=== PATIENT | male | born 1990 | race Caucasian/White ===

== ENCOUNTER 2020-04-15 22:23 | Observation (INO) | payer SELFPAY ==
--- NOTE | 2020-04-15 22:51 | EDM.PDOC ---
ED HPI GENERAL MEDICAL PROBLEM - General Chief Complaint: Headache Stated Complaint: SICK Time Seen by Provider: 04/15/20 22:49 Source of Information: Reports: Patient History Limitations: Reports: No Limitations - History of Present Illness INITIAL COMMENTS - FREE TEXT/NARRATIVE: 29 yo M presents with abdominal pain, headache, constitutional symptoms. Symptoms started about 3 weeks ago with fevers, generalized malaise, myalgias, chills, dizziness, cervical and inguinal lymph node swelling, neck pain, headache, light sensitivity, dry eyes. He also notes a constant gradual onset diffuse headache currently rated 5/10. He admits to shortness of breath, nausea, decreased appetite, urinary frequency, abdominal pain that has been progressively worsening. His abdominal pain is localized to the right lower quadrant today, rated 7/10, nonradiating, constant, now resolved, no alleviating or exacerbating factors. He denies cough, chest pain, vomiting, diarrhea, dysuria. He was seen in the clinic on 03/26 and was given IM antibiotics for leukocytosis. He finished p.o. antibiotics last Sunday and he does not recall the name of the antibiotic. He denies tick bite or mosquito bites. ROS: A 10-point review of systems, other than pertinent positives and negatives as stated per HPI, is otherwise negative Past medical history: No additional pertinent history Past Surgical history: No additional pertinent history Social history: No additional pertinent history Family history: No additional pertinent history PHYSICAL EXAM General: AOx4, GCS = 15, mild distress Skin: clammy HEENT: dry mucous membrane, cervical lymphadenopathy, trace erythema bilateral tonsils. Neck: supple, no meningismus, no Kernig or Brudzinski Cardiac: S1S2 tachycardia, no audible murmur Respiratory: CTAB, no crackles or rales, no wheezing Abdomen: Soft, nontender, no rebound or guarding, nondistended, no pulsatile mass. Back: nontender Musculoskeletal: NVI distally, no deformity Neuro: No focal deficits Head Pain Score (Numeric/FACES): 9 - Related Data Allergies Allergy/AdvReac Type Severity Reaction Status Date / Time No Known Allergies Allergy Verified 04/15/20 22:40 Home Meds: Home Meds . [No Known Home Meds] 04/15/20 [History] Past Medical History - Past Health History Medical/Surgical History: Denies Medical/Surgical History - Infectious Disease History Infectious Disease History: Reports: Chicken Pox Social & Family History - Tobacco Use Tobacco Use Status *Q: Never Tobacco User - Caffeine Use Caffeine Use: Reports: Coffee, Energy Drinks - Recreational Drug Use Recreational Drug Use: Yes Drug Use in Last 12 Months: Yes Recreational Drug Type: Reports: Marijuana/Hashish Recreational Drug Use Frequency: Weekly ED ROS GENERAL - Review of Systems Review Of Systems: See Below (see dictation) ED EXAM, GENERAL - Physical Exam Exam: See Below (see dictation) ED GENERAL MEDICAL PROCEDURES - Lumbar Puncture Indication: Fever, Headache Consent Obtained: Patient Position: Right Prep: CDC/MBT Guidelines, Sterile Drapes, Betadine Local Anesthesia - Lidocaine (Xylocaine): 1% Plain Local Anesthetic Volume: 5cc Vertebral Interspace: L4/L5 Spinal Needle with Stylet: 20ga, 3.5 Inch (Adult) Number of Attempts: 2 Fluid Appearance: Cloudy Tubes Obtained: 4 Total Fluid Amount: 4cc Complications: No Sterile Dressing: Adhesive Dressing #1 Interpretation EKG Interpretation Comments: Heart rate = 90 bpm, normal sinus rhythm, normal QRS interval, no STEMI. EKG and rhythm strip interpreted by me at 1135pm Course - Vital Signs Last Recorded V/S: Last Vital Signs Temp 97.9 F 04/16/20 01:19 Pulse 72 04/16/20 01:19 Resp 18 04/16/20 01:19 BP 102/42 L 04/16/20 01:19 Pulse Ox 97 04/16/20 01:19 - Orders/Labs/Meds Orders: Active Orders 24 hr Category Date Time Status Patient Status [ADT] Routine ADT 04/16/20 03:50 Ordered Cardiac Monitoring [RC] . DIRECTED Care 04/15/20 23:04 Active EKG Documentation Completion [RC] STAT Care 04/15/20 23:05 Active Flat in Bed [RC] ASDIRECTED Care 04/16/20 00:34 Active Procedure Tray at Bedside [RC] ASDIRECTED Care 04/16/20 00:34 Active Pulse Oximetry [RC] ASDIRECTED Care 04/15/20 23:04 Active Verify Patient Consent Obtain [RC] ASDIRECTED Care 04/16/20 00:34 Active CULTURE BLOOD [BC] Stat Lab 04/15/20 23:54 Received CULTURE BLOOD [BC] Stat Lab 04/15/20 23:59 Received CULTURE CSF + SMEAR [RM] Urgent Lab 04/16/20 01:45 Received GLUCOSE,CSF [BF] Urgent Lab 04/16/20 01:45 Received HSV 1/2 PCR [REF] Stat Lab 04/16/20 01:45 Received PROCALCITONIN [REF] Stat Lab 04/15/20 23:26 Received PROTEIN,CSF [BF] Urgent Lab 04/16/20 01:45 Received [place] VIRUS ANTIBODY, CSF Stat Lab 04/16/20 01:45 Received Acyclovir [Zovirax] 1,000 mg Med 04/16/20 03:11 Active Sodium Chloride 0.9% [Normal Saline] 250 ml IV ONETIME Acyclovir [Zovirax] 1,000 mg Med 04/16/20 02:15 Active Sodium Chloride 0.9% [Normal Saline] 250 ml IV Q8H Sodium Chloride 0.9% [Saline Flush] Med 04/15/20 23:04 Active 10 ml FLUSH ASDIRECTED PRN Sodium Chloride 0.9% [Saline Flush] Med 04/15/20 23:04 Active 2.5 ml FLUSH ASDIRECTED PRN Vancomycin Med 04/16/20 02:15 Active 1,462.83 mg IV Q12H Blood Culture x2 Reflex Set [OM.PC] Stat Oth 04/15/20 23:05 Ordered ED Lumbar Puncture Reflex [OM.PC] Click to Edit Oth 04/16/20 00:34 Ordered Saline Lock Insert [OM.PC] Stat Oth 04/15/20 23:04 Ordered Medication Orders Acyclovir 1,000 mg/ Sodium (Chloride) 270 mls @ 270 mls/hr IV Q8H [facility] Last Admin: 04/16/20 03:14 Dose: Not Given Documented by: GAIL Acyclovir 1,000 mg/ Sodium (Chloride) 270 mls @ 250 mls/hr IV ONETIME ONE Stop: 04/16/20 04:15 Last Admin: 04/16/20 03:12 Dose: 250 mls/hr Documented by: GAIL Sodium Chloride (Saline Flush) 10 ml FLUSH ASDIRECTED PRN PRN Reason: Keep Vein Open Last Admin: 04/15/20 23:28 Dose: 10 ml Documented by: IZAIAH Sodium Chloride (Saline Flush) 2.5 ml FLUSH ASDIRECTED PRN PRN Reason: Keep Vein Open Last Admin: 04/15/20 23:28 Dose: 2.5 ml Documented by: IZAIAH Vancomycin HCl (Vancomycin) 1,462.83 mg 15 mg/kg (1462.83 mg) IV Q12H [facility] Last Admin: 04/16/20 03:00 Dose: Not Given Documented by: GAIL Labs: Laboratory Tests 04/15/20 04/15/20 04/15/20 Range/Units 23:26 23:26 23:26 WBC 10.76 (4.0-11.0) K/uL RBC 3.99 L (4.50-5.90) M/uL Hgb 12.1 L (13.0-17.0) g/dL Hct 35.5 L (38.0-50.0) % MCV 89.0 (80.0-98.0) fL MCH 30.3 (27.0-32.0) pg MCHC 34.1 (31.0-37.0) g/dL RDW Std Deviation 38.9 (28.0-62.0) fl RDW Coeff of Aditya 12 (11.0-15.0) % Plt Count 243 (150-400) K/uL MPV 10.10 (7.40-12.00) fL Neut % (Auto) 71.8 (48.0-80.0) % Lymph % (Auto) 15.2 L (16.0-40.0) % Hanson % (Auto) 12.5 (0.0-15.0) % Eos % (Auto) 0.2 (0.0-7.0) % Baso % (Auto) 0.3 (0.0-1.5) % Neut # (Auto) 7.7 H (1.4-5.7) K/uL Lymph # (Auto) 1.6 (0.6-2.4) K/uL Hanson # (Auto) 1.3 H (0.0-0.8) K/uL Eos # (Auto) 0.0 (0.0-0.7) K/uL Baso # (Auto) 0.0 (0.0-0.1) K/uL Nucleated RBC % 0.0 /100WBC Nucleated RBCs # 0 K/uL ESR (0-14) mm/hr APTT (18.6-31.3) SEC D-Dimer, Quantitative (0.0-0.50) mg/L FEU Lactate 0.6 (0.20-2.00) mmol/L Sodium 133 L (136-148) mmol/L Potassium 3.7 (3.5-5.1) mmol/L Chloride 99 (98-107) mmol/L Carbon Dioxide 25.4 (21.0-32.0) mmol/L BUN 16 (7.0-18.0) mg/dL Creatinine 1.2 (0.8-1.3) mg/dL Est Cr Clr Drug Dosing 102.65 mL/min Estimated GFR (MDRD) > 60.0 ml/min Glucose 112 H (74-106) mg/dL Calcium 8.9 (8.5-10.1) mg/dL Phosphorus 2.7 (2.6-4.7) mg/dL Magnesium 2.0 (1.8-2.4) mg/dL Total Bilirubin 0.5 (0.2-1.0) mg/dL AST 33 (15-37) IU/L ALT 37 (14-63) IU/L Alkaline Phosphatase 65 (46-116) U/L Creatine Kinase 866 H (26-308) U/L CK-MB (CK-2) (0-3.6) ng/mL Troponin I 0.058 H* (0.000-0.056) ng/mL C-Reactive Protein 8.60 H (0.00-0.90) mg/dL B-Natriuretic Peptide (<100) PG/ML Total Protein 7.1 (6.4-8.2) g/dL Albumin 4.0 (3.4-5.0) g/dL Globulin 3.1 (2.6-4.0) g/dL Albumin/Globulin Ratio 1.3 (0.9-1.6) Lipase 112 (73-393) U/L Urine Color Urine Appearance Urine pH (5.0-8.0) Ur Specific Arbuckle (1.001-1.035) Urine Protein (NEGATIVE) mg/dL Urine Glucose (UA) (NEGATIVE) mg/dL Urine Ketones (NEGATIVE) mg/dL Urine Occult Blood (NEGATIVE) Urine Nitrite (NEGATIVE) Urine Bilirubin (NEGATIVE) Urine Urobilinogen (<2.0) EU/dL Ur Leukocyte Esterase (NEGATIVE) Urine RBC (0-2/HPF) Urine WBC (0-5/HPF) Ur Epithelial Cells (NONE-FEW) Urine Bacteria (NEGATIVE) Urine Mucus (NONE-MOD) CSF Appearance CSF Color CSF WBC (0-5) /uL CSF RBC (0-0) /uL CSF Mononuclear Cells % CSF Polymorphonuclear % Urine Opiates Screen (NEGATIVE) Ur Oxycodone Screen (NEGATIVE) Urine Methadone Screen (NEGATIVE) Ur Barbiturates Screen (NEGATIVE) Ur Phencyclidine Scrn (NEGATIVE) Ur Amphetamine Screen (NEGATIVE) U Methamphetamines Scrn (NEGATIVE) U Benzodiazepines Scrn (NEGATIVE) U Cocaine Metab Screen (NEGATIVE) U Marijuana (THC) Screen (NEGATIVE) Monoscreen (NEG) Influenza Type A RNA (NEGATIVE) Influenza Type B RNA (NEGATIVE) RSV Rapid (NEGATIVE) SARS-CoV-2 RNA (LARRY) (NEGATIVE) 04/15/20 04/15/20 04/15/20 Range/Units 23:26 23:26 23:26 WBC (4.0-11.0) K/uL RBC (4.50-5.90) M/uL Hgb (13.0-17.0) g/dL Hct (38.0-50.0) % MCV (80.0-98.0) fL MCH (27.0-32.0) pg MCHC (31.0-37.0) g/dL RDW Std Deviation (28.0-62.0) fl RDW Coeff of Aditya (11.0-15.0) % Plt Count (150-400) K/uL MPV (7.40-12.00) fL Neut % (Auto) (48.0-80.0) % Lymph % (Auto) (16.0-40.0) % Hanson % (Auto) (0.0-15.0) % Eos % (Auto) (0.0-7.0) % Baso % (Auto) (0.0-1.5) % Neut # (Auto) (1.4-5.7) K/uL Lymph # (Auto) (0.6-2.4) K/uL Hanson # (Auto) (0.0-0.8) K/uL Eos # (Auto) (0.0-0.7) K/uL Baso # (Auto) (0.0-0.1) K/uL Nucleated RBC % /100WBC Nucleated RBCs # K/uL ESR 14 (0-14) mm/hr APTT 26.0 (18.6-31.3) SEC D-Dimer, Quantitative 0.36 (0.0-0.50) mg/L FEU Lactate (0.20-2.00) mmol/L Sodium (136-148) mmol/L Potassium (3.5-5.1) mmol/L Chloride (98-107) mmol/L Carbon Dioxide (21.0-32.0) mmol/L BUN (7.0-18.0) mg/dL Creatinine (0.8-1.3) mg/dL Est Cr Clr Drug Dosing mL/min Estimated GFR (MDRD) ml/min Glucose (74-106) mg/dL Calcium (8.5-10.1) mg/dL Phosphorus (2.6-4.7) mg/dL Magnesium (1.8-2.4) mg/dL Total Bilirubin (0.2-1.0) mg/dL AST (15-37) IU/L ALT (14-63) IU/L Alkaline Phosphatase (46-116) U/L Creatine Kinase (26-308) U/L CK-MB (CK-2) (0-3.6) ng/mL Troponin I (0.000-0.056) ng/mL C-Reactive Protein (0.00-0.90) mg/dL B-Natriuretic Peptide (<100) PG/ML Total Protein (6.4-8.2) g/dL Albumin (3.4-5.0) g/dL Globulin (2.6-4.0) g/dL Albumin/Globulin Ratio (0.9-1.6) Lipase (73-393) U/L Urine Color Urine Appearance Urine pH (5.0-8.0) Ur Specific Arbuckle (1.001-1.035) Urine Protein (NEGATIVE) mg/dL Urine Glucose (UA) (NEGATIVE) mg/dL Urine Ketones (NEGATIVE) mg/dL Urine Occult Blood (NEGATIVE) Urine Nitrite (NEGATIVE) Urine Bilirubin (NEGATIVE) Urine Urobilinogen (<2.0) EU/dL Ur Leukocyte Esterase (NEGATIVE) Urine RBC (0-2/HPF) Urine WBC (0-5/HPF) Ur Epithelial Cells (NONE-FEW) Urine Bacteria (NEGATIVE) Urine Mucus (NONE-MOD) CSF Appearance CSF Color CSF WBC (0-5) /uL CSF RBC (0-0) /uL CSF Mononuclear Cells % CSF Polymorphonuclear % Urine Opiates Screen (NEGATIVE) Ur Oxycodone Screen (NEGATIVE) Urine Methadone Screen (NEGATIVE) Ur Barbiturates Screen (NEGATIVE) Ur Phencyclidine Scrn (NEGATIVE) Ur Amphetamine Screen (NEGATIVE) U Methamphetamines Scrn (NEGATIVE) U Benzodiazepines Scrn (NEGATIVE) U Cocaine Metab Screen (NEGATIVE) U Marijuana (THC) Screen (NEGATIVE) Monoscreen NEGATIVE (NEG) Influenza Type A RNA (NEGATIVE) Influenza Type B RNA (NEGATIVE) RSV Rapid (NEGATIVE) SARS-CoV-2 RNA (LARRY) (NEGATIVE) 04/15/20 04/16/20 04/16/20 Range/Units 23:26 00:30 00:30 WBC (4.0-11.0) K/uL RBC (4.50-5.90) M/uL Hgb (13.0-17.0) g/dL Hct (38.0-50.0) % MCV (80.0-98.0) fL MCH (27.0-32.0) pg MCHC (31.0-37.0) g/dL RDW Std Deviation (28.0-62.0) fl RDW Coeff of Aditya (11.0-15.0) % Plt Count (150-400) K/uL MPV (7.40-12.00) fL Neut % (Auto) (48.0-80.0) % Lymph % (Auto) (16.0-40.0) % Hanson % (Auto) (0.0-15.0) % Eos % (Auto) (0.0-7.0) % Baso % (Auto) (0.0-1.5) % Neut # (Auto) (1.4-5.7) K/uL Lymph # (Auto) (0.6-2.4) K/uL Hanson # (Auto) (0.0-0.8) K/uL Eos # (Auto) (0.0-0.7) K/uL Baso # (Auto) (0.0-0.1) K/uL Nucleated RBC % /100WBC Nucleated RBCs # K/uL ESR (0-14) mm/hr APTT (18.6-31.3) SEC D-Dimer, Quantitative (0.0-0.50) mg/L FEU Lactate (0.20-2.00) mmol/L Sodium (136-148) mmol/L Potassium (3.5-5.1) mmol/L Chloride (98-107) mmol/L Carbon Dioxide (21.0-32.0) mmol/L BUN (7.0-18.0) mg/dL Creatinine (0.8-1.3) mg/dL Est Cr Clr Drug Dosing mL/min Estimated GFR (MDRD) ml/min Glucose (74-106) mg/dL Calcium (8.5-10.1) mg/dL Phosphorus (2.6-4.7) mg/dL Magnesium (1.8-2.4) mg/dL Total Bilirubin (0.2-1.0) mg/dL AST (15-37) IU/L ALT (14-63) IU/L Alkaline Phosphatase (46-116) U/L Creatine Kinase (26-308) U/L CK-MB (CK-2) (0-3.6) ng/mL Troponin I (0.000-0.056) ng/mL C-Reactive Protein (0.00-0.90) mg/dL B-Natriuretic Peptide 14 (<100) PG/ML Total Protein (6.4-8.2) g/dL Albumin (3.4-5.0) g/dL Globulin (2.6-4.0) g/dL Albumin/Globulin Ratio (0.9-1.6) Lipase (73-393) U/L Urine Color YELLOW Urine Appearance CLEAR Urine pH 6.0 (5.0-8.0) Ur Specific Arbuckle 1.020 (1.001-1.035) Urine Protein NEGATIVE (NEGATIVE) mg/dL Urine Glucose (UA) NEGATIVE (NEGATIVE) mg/dL Urine Ketones NEGATIVE (NEGATIVE) mg/dL Urine Occult Blood TRACE-INTACT H (NEGATIVE) Urine Nitrite NEGATIVE (NEGATIVE) Urine Bilirubin NEGATIVE (NEGATIVE) Urine Urobilinogen 0.2 (<2.0) EU/dL Ur Leukocyte Esterase NEGATIVE (NEGATIVE) Urine RBC 0-2 (0-2/HPF) Urine WBC 0-1 (0-5/HPF) Ur Epithelial Cells OCCASIONAL (NONE-FEW) Urine Bacteria RARE (NEGATIVE) Urine Mucus LIGHT (NONE-MOD) CSF Appearance CSF Color CSF WBC (0-5) /uL CSF RBC (0-0) /uL CSF Mononuclear Cells % CSF Polymorphonuclear % Urine Opiates Screen NEGATIVE (NEGATIVE) Ur Oxycodone Screen NEGATIVE (NEGATIVE) Urine Methadone Screen NEGATIVE (NEGATIVE) Ur Barbiturates Screen NEGATIVE (NEGATIVE) Ur Phencyclidine Scrn NEGATIVE (NEGATIVE) Ur Amphetamine Screen NEGATIVE (NEGATIVE) U Methamphetamines Scrn NEGATIVE (NEGATIVE) U Benzodiazepines Scrn NEGATIVE (NEGATIVE) U Cocaine Metab Screen NEGATIVE (NEGATIVE) U Marijuana (THC) Screen POSITIVE (NEGATIVE) Monoscreen (NEG) Influenza Type A RNA (NEGATIVE) Influenza Type B RNA (NEGATIVE) RSV Rapid (NEGATIVE) SARS-CoV-2 RNA (LARRY) (NEGATIVE) 04/16/20 04/16/20 04/16/20 Range/Units 01:00 01:45 02:08 WBC (4.0-11.0) K/uL RBC (4.50-5.90) M/uL Hgb (13.0-17.0) g/dL Hct (38.0-50.0) % MCV (80.0-98.0) fL MCH (27.0-32.0) pg MCHC (31.0-37.0) g/dL RDW Std Deviation (28.0-62.0) fl RDW Coeff of Aditya (11.0-15.0) % Plt Count (150-400) K/uL MPV (7.40-12.00) fL Neut % (Auto) (48.0-80.0) % Lymph % (Auto) (16.0-40.0) % Hanson % (Auto) (0.0-15.0) % Eos % (Auto) (0.0-7.0) % Baso % (Auto) (0.0-1.5) % Neut # (Auto) (1.4-5.7) K/uL Lymph # (Auto) (0.6-2.4) K/uL Hanson # (Auto) (0.0-0.8) K/uL Eos # (Auto) (0.0-0.7) K/uL Baso # (Auto) (0.0-0.1) K/uL Nucleated RBC % /100WBC Nucleated RBCs # K/uL ESR (0-14) mm/hr APTT (18.6-31.3) SEC D-Dimer, Quantitative (0.0-0.50) mg/L FEU Lactate (0.20-2.00) mmol/L Sodium (136-148) mmol/L Potassium (3.5-5.1) mmol/L Chloride (98-107) mmol/L Carbon Dioxide (21.0-32.0) mmol/L BUN (7.0-18.0) mg/dL Creatinine (0.8-1.3) mg/dL Est Cr Clr Drug Dosing mL/min Estimated GFR (MDRD) ml/min Glucose (74-106) mg/dL Calcium (8.5-10.1) mg/dL Phosphorus (2.6-4.7) mg/dL Magnesium (1.8-2.4) mg/dL Total Bilirubin (0.2-1.0) mg/dL AST (15-37) IU/L ALT (14-63) IU/L Alkaline Phosphatase (46-116) U/L Creatine Kinase (26-308) U/L CK-MB (CK-2) 0.7 (0-3.6) ng/mL Troponin I < 0.050 (0.000-0.056) ng/mL C-Reactive Protein (0.00-0.90) mg/dL B-Natriuretic Peptide (<100) PG/ML Total Protein (6.4-8.2) g/dL Albumin (3.4-5.0) g/dL Globulin (2.6-4.0) g/dL Albumin/Globulin Ratio (0.9-1.6) Lipase (73-393) U/L Urine Color Urine Appearance Urine pH (5.0-8.0) Ur Specific Arbuckle (1.001-1.035) Urine Protein (NEGATIVE) mg/dL Urine Glucose (UA) (NEGATIVE) mg/dL Urine Ketones (NEGATIVE) mg/dL Urine Occult Blood (NEGATIVE) Urine Nitrite (NEGATIVE) Urine Bilirubin (NEGATIVE) Urine Urobilinogen (<2.0) EU/dL Ur Leukocyte Esterase (NEGATIVE) Urine RBC (0-2/HPF) Urine WBC (0-5/HPF) Ur Epithelial Cells (NONE-FEW) Urine Bacteria (NEGATIVE) Urine Mucus (NONE-MOD) CSF Appearance CLEAR CSF Color COLORLESS CSF WBC 3 (0-5) /uL CSF RBC 259 H (0-0) /uL CSF Mononuclear Cells 67.0 % CSF Polymorphonuclear 33.0 % Urine Opiates Screen (NEGATIVE) Ur Oxycodone Screen (NEGATIVE) Urine Methadone Screen (NEGATIVE) Ur Barbiturates Screen (NEGATIVE) Ur Phencyclidine Scrn (NEGATIVE) Ur Amphetamine Screen (NEGATIVE) U Methamphetamines Scrn (NEGATIVE) U Benzodiazepines Scrn (NEGATIVE) U Cocaine Metab Screen (NEGATIVE) U Marijuana (THC) Screen (NEGATIVE) Monoscreen (NEG) Influenza Type A RNA NEGATIVE (NEGATIVE) Influenza Type B RNA NEGATIVE (NEGATIVE) RSV Rapid NEGATIVE (NEGATIVE) SARS-CoV-2 RNA (LARRY) NEGATIVE (NEGATIVE) Meds: Medications Generic Name Dose Route Start Last Admin Trade Name Freq PRN Reason Stop Dose Admin Acyclovir 1,000 mg/ Sodium 270 mls @ 270 mls/hr 04/16/20 02:15 04/16/20 03:14 Chloride IV Not Given Q8H DEISY Acyclovir 1,000 mg/ Sodium 270 mls @ 250 mls/hr 04/16/20 03:11 04/16/20 03:12 Chloride IV 04/16/20 04:15 250 mls/hr ONETIME ONE Administration Sodium Chloride 10 ml 04/15/20 23:04 04/15/20 23:28 Saline Flush FLUSH 10 ml ASDIRECTED PRN Administration Keep Vein Open Sodium Chloride 2.5 ml 04/15/20 23:04 04/15/20 23:28 Saline Flush FLUSH 2.5 ml ASDIRECTED PRN Administration Keep Vein Open Vancomycin HCl 1,462.83 mg 04/16/20 02:15 04/16/20 03:00 Vancomycin 15 mg/kg (1462.83 mg) Not Given IV Q12H DEISY Discontinued Medications Generic Name Dose Route Start Last Admin Trade Name Erik PRN Reason Stop Dose Admin Acetaminophen 1,000 mg 04/15/20 23:15 04/15/20 23:28 Tylenol Extra Strength PO 04/15/20 23:16 1,000 mg ONETIME ONE Administration Ceftriaxone Sodium 2 gm 04/16/20 02:07 04/16/20 02:18 Rocephin IVPUSH 04/16/20 02:08 Not Given ONETIME ONE Dexamethasone 10 mg 04/16/20 02:07 04/16/20 02:16 Decadron IVPUSH 04/16/20 02:08 10 mg ONETIME ONE Administration Diphenhydramine HCl 50 mg 04/15/20 23:54 04/16/20 00:26 Benadryl IVPUSH 04/15/20 23:55 Not Given ONETIME ONE Lactated Ringer's 1,000 mls @ 999 mls/hr 04/15/20 23:04 04/15/20 23:28 Ringers, Lactated IV 04/16/20 00:04 999 mls/hr .BOLUS ONE Administration Lactated Ringer's 1,000 mls @ 999 mls/hr 04/16/20 01:07 04/16/20 01:12 Ringers, Lactated IV 04/16/20 02:07 999 mls/hr .BOLUS ONE Administration Ceftriaxone Sodium/Dextrose 2 50 mls @ 100 mls/hr 04/16/20 02:18 04/16/20 02:30 gm/ Premix IV 04/16/20 02:47 100 mls/hr ONETIME ONE Administration Vancomycin HCl 1.5 gm/ Premix 300 mls @ 300 mls/hr 04/16/20 02:38 IV 04/16/20 02:39 ONETIME ONE Iopamidol 100 ml 04/16/20 01:08 04/16/20 01:48 Isovue Multipack-370 (76%) IVPUSH 04/16/20 01:09 100 ml ONETIME STA Administration Ketorolac Tromethamine 30 mg 04/15/20 23:54 04/16/20 00:23 Toradol IVPUSH 04/15/20 23:55 30 mg ONETIME ONE Administration Lidocaine HCl Confirm 04/16/20 01:52 04/16/20 01:57 Xylocaine-Mpf 1% Administered 04/16/20 01:53 Not Given Dose 5 ml .ROUTE .STK-MED ONE Lidocaine HCl 5 ml 04/16/20 01:56 04/16/20 02:03 Xylocaine-Mpf 1% INJECT 04/16/20 01:57 5 ml ONETIME ONE Administration Metoclopramide HCl 10 mg 04/15/20 23:54 04/16/20 00:23 Reglan IVPUSH 04/15/20 23:55 10 mg ONETIME ONE Administration - Re-Assessments/Exams Free Text/Narrative Re-Assessment/Exam: 04/16/20 02:12 Ordered 10 mg IV Decadron prior to IV Rocephin 2 g, vancomycin 15mg/kg, acyclovir 10mg/kg. 04/16/20 03:[address] Post, who agrees to admit patient. The hospitalist's documentation supersedes all other documentation on this patient with regard to any conflicts or discrepancies from this point forward. Any emergency conditions have been treated to the ability of the ED prior to admission. MEDICAL DECISION MAKING: I reviewed the patients past medical records, lab and radiographic findings. I discussed the case with the patient. My differential diagnosis included: Encephalitis, meningitis, viral syndrome, appendicitis. CT demonstrates findings worrisome of early appendicitis. His symptoms are consistent with encephalitis versus meningitis. Lumbar puncture did not demonstrate elevated WBC. HSV 1/2 was sent and pending. Departure - Departure Time of Disposition: 03:52 Disposition: Refer to Observation Condition: Good Clinical Impression: Aseptic meningitis, Elevated troponin, Strep pharyngitis, Viral syndrome - Discharge Information *PRESCRIPTION DRUG MONITORING PROGRAM REVIEWED*: Not Applicable *COPY OF PRESCRIPTION DRUG MONITORING REPORT IN PATIENT EMI: Not Applicable Referrals: PCP,None [Primary Care Provider] - Forms: ED Department Discharge Critical Care Note - Critical Care Note Total Time (mins): 78 Comments: CRITCAL CARE: The high probability of sudden, clinically significant deterioration in the patient's condition required the highest level of my preparedness to intervene urgently. The services I provided to this patient were to treat and/or prevent clinically significant deterioration. Services included the following: chart data review, reviewing nursing notes and/or old charts, documentation time, transformation consultant collaboration regarding findings and treatment options, medication orders and management, direct patient care, vital sign assessments and ordering, i nterpreting and reviewing diagnostic studies/lab tests. Aggregate critical care time includes only time during which I was engaged in work directly related to the patient's care, as described above, whether at the bedside or elsewhere in the Emergency Department. It did not include time spent performing other reported procedures or the services of residents, students, nurses or physician assistants. Frequent interventions and/or frequent repeat evaluations were required as well as counseling and coordination of care regarding prognosis, treatments, and discussions with patient, staff and con sultants. Critical Care (excluding other procedures): 78 minutes Sepsis Event Note (ED) - Evaluation Sepsis Screening Result: Possible Sepsis Risk - Focused Exam Vital Signs: Vital Signs Temp Temp Temp Pulse Resp BP Pulse Ox 04/16/20 01:19 97.9 F 72 18 102/42 L 97 04/16/20 00:29 97.7 F 88 18 120/39 L 97 04/15/20 23:28 100.7 F H 04/15/20 22:40 101 F H 100 16 132/63 95 - My Orders Last 24 Hours: My Active Orders 04/15/20 23:04 Cardiac Monitoring [RC] . DIRECTED Pulse Oximetry [RC] ASDIRECTED Sodium Chloride 0.9% [Saline Flush] 10 ml FLUSH ASDIRECTED PRN Sodium Chloride 0.9% [Saline Flush] 2.5 ml FLUSH ASDIRECTED PRN Saline Lock Insert [OM.PC] Stat 04/15/20 23:05 EKG Documentation Completion [RC] STAT Blood Culture x2 Reflex Set [OM.PC] Stat 04/15/20 23:26 PROCALCITONIN [REF] Stat 04/15/20 23:54 CULTURE BLOOD [BC] Stat 04/15/20 23:59 CULTURE BLOOD [BC] Stat 04/16/20 00:34 Flat in Bed [RC] ASDIRECTED Procedure Tray at Bedside [RC] ASDIRECTED Verify Patient Consent Obtain [RC] ASDIRECTED ED Lumbar Puncture Reflex [OM.PC] Click to Edit 04/16/20 01:45 CULTURE CSF + SMEAR [RM] Urgent GLUCOSE,CSF [BF] Urgent HSV 1/2 PCR [REF] Stat PROTEIN,CSF [BF] Urgent WEST NILE VIRUS ANTIBODY, CSF Stat 04/16/20 02:15 Acyclovir [Zovirax] 1,000 mg Sodium Chloride 0.9% [Normal Saline] 250 ml IV Q8H Vancomycin 1,462.83 mg IV Q12H 04/16/20 03:11 Acyclovir [Zovirax] 1,000 mg Sodium Chloride 0.9% [Normal Saline] 250 ml IV ONETIME 04/16/20 03:50 Patient Status [ADT] Routine - Assessment/Plan Last 24 Hours: My Active Orders 04/15/20 23:04 Cardiac Monitoring [RC] . DIRECTED Pulse Oximetry [RC] ASDIRECTED Sodium Chloride 0.9% [Saline Flush] 10 ml FLUSH ASDIRECTED PRN Sodium Chloride 0.9% [Saline Flush] 2.5 ml FLUSH ASDIRECTED PRN Saline Lock Insert [OM.PC] Stat 04/15/20 23:05 EKG Documentation Completion [RC] STAT Blood Culture x2 Reflex Set [OM.PC] Stat 04/15/20 23:26 PROCALCITONIN [REF] Stat 04/15/20 23:54 CULTURE BLOOD [BC] Stat 04/15/20 23:59 CULTURE BLOOD [BC] Stat 04/16/20 00:34 Flat in Bed [RC] ASDIRECTED Procedure Tray at Bedside [RC] ASDIRECTED Verify Patient Consent Obtain [RC] ASDIRECTED ED Lumbar Puncture Reflex [OM.PC] Click to Edit 04/16/20 01:45 CULTURE CSF + SMEAR [RM] Urgent GLUCOSE,CSF [BF] Urgent HSV 1/2 PCR [REF] Stat PROTEIN,CSF [BF] Urgent WEST NILE VIRUS ANTIBODY, CSF Stat 04/16/20 02:15 Acyclovir [Zovirax] 1,000 mg Sodium Chloride 0.9% [Normal Saline] 250 ml IV Q8H Vancomycin 1,462.83 mg IV Q12H 04/16/20 03:11 Acyclovir [Zovirax] 1,000 mg Sodium Chloride 0.9% [Normal Saline] 250 ml IV ONETIME 04/16/20 03:50 Patient Status [ADT] Routine
[2020-04-15] MEDS ORDERED: Acetaminophen 325 MG/10.15 ML ML PO ONE (23:04)
[2020-04-15] MEDS ORDERED: Sodium Chloride 0.9% 10 ML Syringe FLUSH PRN (23:04)
[2020-04-15] MEDS ORDERED: Sodium Chloride 0.9% 2.5 ML Syringe FLUSH PRN (23:04)
[2020-04-15] MEDS ORDERED: Lactated Ringers 1,000 ML IV ONE (23:04)
[2020-04-15] MEDS ORDERED: Acetaminophen 500 MG Tab PO ONE (23:15)
[2020-04-15] MEDS ORDERED: Metoclopramide 10 MG/2 ML SDV IVPUSH ONE (23:54)
[2020-04-15] MEDS ORDERED: Ketorolac 30 MG/ML SDV IVPUSH ONE (23:54)
[2020-04-15] MEDS ORDERED: diphenhydrAMINE 50 MG/ML SDV IVPUSH ONE (23:54)
[2020-04-16 00:09] LABS: BLOOD UREA NITROGEN,BUN 16 mg/dL (7.0-18.0); CARBON DIOXIDE,CO2 25.4 mmol/L (21.0-32.0); CHLORIDE,CL 99 mmol/L (98-107); GLUCOSE RANDOM 112 mg/dL (74-106); LIPASE 112 U/L (73-393); POTASSIUM,K 3.7 mmol/L (3.5-5.1); SODIUM,NA 133 mmol/L (136-148)
[2020-04-16] MEDS ORDERED: Lactated Ringers 1,000 ML IV ONE (01:07)
[2020-04-16] MEDS ORDERED: Iopamidol 755 MG/ML 500 ML Multipack Bottle IVPUSH STA (01:08)
--- NOTE | 2020-04-16 01:17 | CT ---
INDICATION: Headache TECHNIQUE: CT Head without i.v. contrast. COMPARISON: None FINDINGS: CSF space: The ventricles are normal for age. Brain: No evidence of mass, acute infarction or hemorrhage is seen. No mass-effect or midline shift is seen. The brain parenchyma is otherwise normal in appearance with preservation of the pablo-white matter junction. Calvarium: The visualized paranasal sinuses are well aerated. The mastoid air cells are clear. The visualized orbits are grossly unremarkable. The calvarium is unremarkable in appearance with no fractures identified. IMPRESSION: 1. No evidence of acute infarction, intracranial hemorrhage, or mass-effect seen. Please note that all CT scans at this facility use dose modulation, iterative reconstruction, and/or weight-based dosing when appropriate to reduce radiation dose to as low as reasonably achievable. Dictated by: Carmelo Lowe MD @ 04/16/2020 01:15:36 (Electronically Signed)
--- NOTE | 2020-04-16 01:17 | CR ---
INDICATION: Shortness of breath TECHNIQUE: Chest radiograph 1 view COMPARISON: 08/11/2019 FINDINGS: Mediastinum: The mediastinum is normal in appearance. The heart silhouette is normal in size and morphology. Lung: Both lungs are unremarkable in appearance. No sign of pleural effusion seen. No pneumothorax is identified. Bone and Soft tissue: Unremarkable for age. IMPRESSION: 1. No acute cardiopulmonary disease is seen. Dictated by: Carmelo Lowe MD @ 04/16/2020 01:16:22 (Electronically Signed)
--- NOTE | 2020-04-16 01:21 | CT ---
INDICATION: Abdominal pain. Anemia TECHNIQUE: CT Abdomen and pelvis with i.v. contrast. Coronal and sagittal reformats were obtained. CONTRAST: 100 mL Isovue 370 COMPARISON: None FINDINGS: Lower chest: Unremarkable. Liver: Unremarkable. Spleen: Unremarkable. Pancreas: Unremarkable. Gallbladder: Unremarkable. Kidney: Unremarkable. No kidney or ureteral stones or obstruction seen. Adrenal: Unremarkable. Bowel: Moderate amount of stool is present throughout the colon which may be due to chronic constipation. The appendix is at the upper limits of normal in size, measuring 7-8 mm in diameter without wall thickening or surrounding inflammatory changes. Vascular: Unremarkable. Lymph: Unremarkable. Peritoneum: Unremarkable. No pneumoperitoneum is seen. No significant ascites is noted. Pelvis: Unremarkable. Soft tissue: Unremarkable. Bone: Unremarkable for age. IMPRESSION: 1. The appendix is at the upper limits of normal in size, measuring 7-8 mm in diameter without wall thickening or surrounding inflammatory changes. This is indeterminate by imaging and clinical followup is recommended. Dictated by Carmelo Lowe MD @ 04/16/2020 1:18:50 AM Please note that all CT scans at this facility use dose modulation, iterative reconstruction, and/or weight-based dosing when appropriate to reduce radiation dose to as low as reasonably achievable. Dictated by: Carmelo Lowe MD @ 04/16/2020 01:18:54 (Electronically Signed)
[2020-04-16 01:54] LABS: CORONAVIRUS COVID-19 NAA NEGATIVE (NEGATIVE); INFLUENZA A NAA NEGATIVE (NEGATIVE); INFLUENZA B NAA NEGATIVE (NEGATIVE); RESPIRATORY SYNCYTIAL VIR NAA NEGATIVE (NEGATIVE)
[2020-04-16] MEDS ORDERED: Dexamethasone 10 MG/ML SDV IVPUSH ONE (02:07)
[2020-04-16] MEDS ORDERED: cefTRIAXone 1 GM Vial IVPUSH ONE (02:07)
[2020-04-16] MEDS ORDERED: Vancomycin 500 MG SDV IV SCH (02:15)
[2020-04-16] MEDS ORDERED: cefTRIAXone 2 GM in Premix Bag 1 BAG IV ONE (02:18)
[2020-04-16] MEDS ORDERED: Acetaminophen 325 MG Tab PO PRN (05:37)
[2020-04-16] MEDS ORDERED: Sodium Chloride 0.9% 1,000 ML IV SCH (05:45)
[2020-04-16 06:39] LABS: BLOOD UREA NITROGEN,BUN 13 mg/dL (7.0-18.0); CARBON DIOXIDE,CO2 26.1 mmol/L (21.0-32.0); CHLORIDE,CL 104 mmol/L (98-107); GLUCOSE RANDOM 135 mg/dL (74-106); SODIUM,NA 139 mmol/L (136-148)
--- NOTE | 2020-04-16 07:44 | PCM.HP.2 ---
H&P History of Present Illness - General Date of Service: 04/16/20 Admit Problem/Dx: Admission Diagnosis/Problem Admission Diagnosis/Problem Elevated troponin I level - History of Present Illness Initial Comments - Free Text/Narative: 29 yo admitted for work-up for suspected encephalitis versus meningitis, positi ve strep pharyngitis. Patient states 3 week history of fevers, generalized malaise, myalgias, chills, dizziness, cervical and inguinal lymph node swelling, neck pain, headache, light sensitivity, dry eyes. Patient states that he was treated with doxycycline for left testicle swelling and inguinal lymph node tenderness prior to his current symptoms. Patient presented to the ED with shortness of breath, nausea, decreased appetite, headache, abdominal pain which was documented being localized to the right lower quadrant today, rated 7/10, nonradiating, constant. On admission patient states that his headache, sensitivity to light, abdominal pain, chills, dizziness have resolved. Patient states slight sore throat, swelling of cervical lymph nodes. Patient states abdominal pain is chronic and has had it on and off for 3 to 4 years. Patient states that he is seen providers for his pain but was told that it was most appendicitis or chronic constipation. In the ED patient was started on acyclovir, vancomycin, ceftriaxone, dexamethasone 10 mg IV. Initial troponin was slightly elevated at 0.058, repeat troponin less than 0.05. Lumbar puncture completed, CSF Gram stain was negative. CSF appearance clear, colorless, CSF WBC = 3. Negative for mono, influenza type A, type B, RSV. Covid negative. Blood blood culture pending, HSV 1 and 2 PCR, West Nile virus, CSF glucose, CSF protein orders are pending. Head Pain Score (Numeric/FACES): 9 - Related Data Allergies/Adverse Reactions: Allergies Allergy/AdvReac Type Severity Reaction Status Date / Time No Known Allergies Allergy Verified 04/15/20 22:40 Home Medications: Home Meds . [No Known Home Meds] 04/15/20 [History] Past Medical History - Past Health History Medical/Surgical History: Denies Medical/Surgical History - Infectious Disease History Infectious Disease History: Reports: Chicken Pox Social & Family History - Tobacco Use Tobacco Use Status *Q: Never Tobacco User - Caffeine Use Caffeine Use: Reports: Coffee, Energy Drinks - Recreational Drug Use Recreational Drug Use: Yes Drug Use in Last 12 Months: Yes Recreational Drug Type: Reports: Marijuana/Hashish Recreational Drug Use Frequency: Weekly H&P Review of Systems - Review of Systems: Review Of Systems: See Below General: Denies: Fever, Chills HEENT: Reports: Headaches, Other (Patient states sensation of feeling "out of it") Pulmonary: Denies: Shortness of Breath, Wheezing, Cough Cardiovascular: Denies: Chest Pain, Dyspnea on Exertion Psychiatric: Denies: Confusion, Anxiety Neurological: Reports: Headache. Denies: Confusion, Dizziness, Trouble Speaking, Difficulty Walking Exam - Exam Exam: See Below - Vital Signs Vital Signs: Last Vital Signs Temp 98.9 F 04/16/20 05:33 Pulse 72 04/16/20 05:33 Resp 16 04/16/20 05:33 BP 112/57 L 04/16/20 05:33 Pulse Ox 98 04/16/20 05:33 Weight: 214 lb 11.2 oz - Exam General: Alert, Oriented Lungs: Clear to Auscultation, Normal Respiratory Effort Cardiovascular: Regular Rate, Regular Rhythm GI/Abdominal Exam: Normal Bowel Sounds, Soft, Non-Tender Back Exam: No: CVA Tenderness (L), CVA Tenderness (R) Extremities: No: No Pedal Edema Neuro Extensive - Mental Status: Alert, Oriented x3 Psychiatric: Alert - Patient Data Lab Results Last 24 hrs: Laboratory Results - last 24 hr 04/15/20 04/15/20 04/15/20 Range/Units 23:26 23:26 23:26 WBC 10.76 (4.0-11.0) K/uL RBC 3.99 L (4.50-5.90) M/uL Hgb 12.1 L (13.0-17.0) g/dL Hct 35.5 L (38.0-50.0) % MCV 89.0 (80.0-98.0) fL MCH 30.3 (27.0-32.0) pg MCHC 34.1 (31.0-37.0) g/dL RDW Std Deviation 38.9 (28.0-62.0) fl RDW Coeff of Aditya 12 (11.0-15.0) % Plt Count 243 (150-400) K/uL MPV 10.10 (7.40-12.00) fL Neut % (Auto) 71.8 (48.0-80.0) % Lymph % (Auto) 15.2 L (16.0-40.0) % Ro[place] % (Auto) 12.5 (0.0-15.0) % Eos % (Auto) 0.2 (0.0-7.0) % Baso % (Auto) 0.3 (0.0-1.5) % Neut # (Auto) 7.7 H (1.4-5.7) K/uL Lymph # (Auto) 1.6 (0.6-2.4) K/uL [place] # (Auto) 1.3 H (0.0-0.8) K/uL Eos # (Auto) 0.0 (0.0-0.7) K/uL Baso # (Auto) 0.0 (0.0-0.1) K/uL Nucleated RBC % 0.0 /100WBC Nucleated RBCs # 0 K/uL ESR (0-14) mm/hr APTT (18.6-31.3) SEC D-Dimer, Quantitative (0.0-0.50) mg/L FEU Lactate 0.6 (0.20-2.00) mmol/L Sodium 133 L (136-148) mmol/L Potassium 3.7 (3.5-5.1) mmol/L Chloride 99 (98-107) mmol/L Carbon Dioxide 25.4 (21.0-32.0) mmol/L BUN 16 (7.0-18.0) mg/dL Creatinine 1.2 (0.8-1.3) mg/dL Est Cr Clr Drug Dosing 102.65 mL/min Estimated GFR (MDRD) > 60.0 ml/min Glucose 112 H (74-106) mg/dL Calcium 8.9 (8.5-10.1) mg/dL Phosphorus 2.7 (2.6-4.7) mg/dL Magnesium 2.0 (1.8-2.4) mg/dL Total Bilirubin 0.5 (0.2-1.0) mg/dL AST 33 (15-37) IU/L ALT 37 (14-63) IU/L Alkaline Phosphatase 65 (46-116) U/L Creatine Kinase 866 H (26-308) U/L CK-MB (CK-2) (0-3.6) ng/mL Troponin I 0.058 H* (0.000-0.056) ng/mL C-Reactive Protein 8.60 H (0.00-0.90) mg/dL B-Natriuretic Peptide (<100) PG/ML Total Protein 7.1 (6.4-8.2) g/dL Albumin 4.0 (3.4-5.0) g/dL Globulin 3.1 (2.6-4.0) g/dL Albumin/Globulin Ratio 1.3 (0.9-1.6) Lipase 112 (73-393) U/L Urine Color Urine Appearance Urine pH (5.0-8.0) Ur Specific [place] (1.001-1.035) Urine Protein (NEGATIVE) mg/dL Urine Glucose (UA) (NEGATIVE) mg/dL Urine Ketones (NEGATIVE) mg/dL Urine Occult Blood (NEGATIVE) Urine Nitrite (NEGATIVE) Urine Bilirubin (NEGATIVE) Urine Urobilinogen (<2.0) EU/dL Ur Leukocyte Esterase (NEGATIVE) Urine RBC (0-2/HPF) Urine WBC (0-5/HPF) Ur Epithelial Cells (NONE-FEW) Urine Bacteria (NEGATIVE) Urine Mucus (NONE-MOD) CSF Appearance CSF Color CSF WBC (0-5) /uL CSF RBC (0-0) /uL CSF Mononuclear Cells % CSF Polymorphonuclear % Urine Opiates Screen (NEGATIVE) Ur Oxycodone Screen (NEGATIVE) Urine Methadone Screen (NEGATIVE) Ur Barbiturates Screen (NEGATIVE) Ur Phencyclidine Scrn (NEGATIVE) Ur Amphetamine Screen (NEGATIVE) U Methamphetamines Scrn (NEGATIVE) U Benzodiazepines Scrn (NEGATIVE) U Cocaine Metab Screen (NEGATIVE) U Marijuana (THC) Screen (NEGATIVE) Monoscreen (NEG) Influenza Type A RNA (NEGATIVE) Influenza Type B RNA (NEGATIVE) RSV Rapid (NEGATIVE) SARS-CoV-2 RNA (LARRY) (NEGATIVE) 04/15/20 04/15/20 04/15/20 Range/Units 23:26 23:26 23:26 WBC (4.0-11.0) K/uL RBC (4.50-5.90) M/uL Hgb (13.0-17.0) g/dL Hct (38.0-50.0) % MCV (80.0-98.0) fL MCH (27.0-32.0) pg MCHC (31.0-37.0) g/dL RDW Std Deviation (28.0-62.0) fl RDW Coeff of Aditya (11.0-15.0) % Plt Count (150-400) K/uL MPV (7.40-12.00) fL Neut % (Auto) (48.0-80.0) % Lymph % (Auto) (16.0-40.0) % Ro[place] % (Auto) (0.0-15.0) % Eos % (Auto) (0.0-7.0) % Baso % (Auto) (0.0-1.5) % Neut # (Auto) (1.4-5.7) K/uL Lymph # (Auto) (0.6-2.4) K/uL [place] # (Auto) (0.0-0.8) K/uL Eos # (Auto) (0.0-0.7) K/uL Baso # (Auto) (0.0-0.1) K/uL Nucleated RBC % /100WBC Nucleated RBCs # K/uL ESR 14 (0-14) mm/hr APTT 26.0 (18.6-31.3) SEC D-Dimer, Quantitative 0.36 (0.0-0.50) mg/L FEU Lactate (0.20-2.00) mmol/L Sodium (136-148) mmol/L Potassium (3.5-5.1) mmol/L Chloride (98-107) mmol/L Carbon Dioxide (21.0-32.0) mmol/L BUN (7.0-18.0) mg/dL Creatinine (0.8-1.3) mg/dL Est Cr Clr Drug Dosing mL/min Estimated GFR (MDRD) ml/min Glucose (74-106) mg/dL Calcium (8.5-10.1) mg/dL Phosphorus (2.6-4.7) mg/dL Magnesium (1.8-2.4) mg/dL Total Bilirubin (0.2-1.0) mg/dL AST (15-37) IU/L ALT (14-63) IU/L Alkaline Phosphatase (46-116) U/L Creatine Kinase (26-308) U/L CK-MB (CK-2) (0-3.6) ng/mL Troponin I (0.000-0.056) ng/mL C-Reactive Protein (0.00-0.90) mg/dL B-Natriuretic Peptide (<100) PG/ML Total Protein (6.4-8.2) g/dL Albumin (3.4-5.0) g/dL Globulin (2.6-4.0) g/dL Albumin/Globulin Ratio (0.9-1.6) Lipase (73-393) U/L Urine Color Urine Appearance Urine pH (5.0-8.0) Ur Specific [place] (1.001-1.035) Urine Protein (NEGATIVE) mg/dL Urine Glucose (UA) (NEGATIVE) mg/dL Urine Ketones (NEGATIVE) mg/dL Urine Occult Blood (NEGATIVE) Urine Nitrite (NEGATIVE) Urine Bilirubin (NEGATIVE) Urine Urobilinogen (<2.0) EU/dL Ur Leukocyte Esterase (NEGATIVE) Urine RBC (0-2/HPF) Urine WBC (0-5/HPF) Ur Epithelial Cells (NONE-FEW) Urine Bacteria (NEGATIVE) Urine Mucus (NONE-MOD) CSF Appearance CSF Color CSF WBC (0-5) /uL CSF RBC (0-0) /uL CSF Mononuclear Cells % CSF Polymorphonuclear % Urine Opiates Screen (NEGATIVE) Ur Oxycodone Screen (NEGATIVE) Urine Methadone Screen (NEGATIVE) Ur Barbiturates Screen (NEGATIVE) Ur Phencyclidine Scrn (NEGATIVE) Ur Amphetamine Screen (NEGATIVE) U Methamphetamines Scrn (NEGATIVE) U Benzodiazepines Scrn (NEGATIVE) U Cocaine Metab Screen (NEGATIVE) U Marijuana (THC) Screen (NEGATIVE) Monoscreen NEGATIVE (NEG) Influenza Type A RNA (NEGATIVE) Influenza Type B RNA (NEGATIVE) RSV Rapid (NEGATIVE) SARS-CoV-2 RNA (LARRY) (NEGATIVE) 04/15/20 04/16/20 04/16/20 Range/Units 23:26 00:30 00:30 WBC (4.0-11.0) K/uL RBC (4.50-5.90) M/uL Hgb (13.0-17.0) g/dL Hct (38.0-50.0) % MCV (80.0-98.0) fL MCH (27.0-32.0) pg MCHC (31.0-37.0) g/dL RDW Std Deviation (28.0-62.0) fl RDW Coeff of Aditya (11.0-15.0) % Plt Count (150-400) K/uL MPV (7.40-12.00) fL Neut % (Auto) (48.0-80.0) % Lymph % (Auto) (16.0-40.0) % [place] % (Auto) (0.0-15.0) % Eos % (Auto) (0.0-7.0) % Baso % (Auto) (0.0-1.5) % Neut # (Auto) (1.4-5.7) K/uL Lymph # (Auto) (0.6-2.4) K/uL [place] # (Auto) (0.0-0.8) K/uL Eos # (Auto) (0.0-0.7) K/uL Baso # (Auto) (0.0-0.1) K/uL Nucleated RBC % /100WBC Nucleated RBCs # K/uL ESR (0-14) mm/hr APTT (18.6-31.3) SEC D-Dimer, Quantitative (0.0-0.50) mg/L FEU Lactate (0.20-2.00) mmol/L Sodium (136-148) mmol/L Potassium (3.5-5.1) mmol/L Chloride (98-107) mmol/L Carbon Dioxide (21.0-32.0) mmol/L BUN (7.0-18.0) mg/dL Creatinine (0.8-1.3) mg/dL Est Cr Clr Drug Dosing mL/min Estimated GFR (MDRD) ml/min Glucose (74-106) mg/dL Calcium (8.5-10.1) mg/dL Phosphorus (2.6-4.7) mg/dL Magnesium (1.8-2.4) mg/dL Total Bilirubin (0.2-1.0) mg/dL AST (15-37) IU/L ALT (14-63) IU/L Alkaline Phosphatase (46-116) U/L Creatine Kinase (26-308) U/L CK-MB (CK-2) (0-3.6) ng/mL Troponin I (0.000-0.056) ng/mL C-Reactive Protein (0.00-0.90) mg/dL B-Natriuretic Peptide 14 (<100) PG/ML Total Protein (6.4-8.2) g/dL Albumin (3.4-5.0) g/dL Globulin (2.6-4.0) g/dL Albumin/Globulin Ratio (0.9-1.6) Lipase (73-393) U/L Urine Color YELLOW Urine Appearance CLEAR Urine pH 6.0 (5.0-8.0) Ur Specific [place] 1.020 (1.001-1.035) Urine Protein NEGATIVE (NEGATIVE) mg/dL Urine Glucose (UA) NEGATIVE (NEGATIVE) mg/dL Urine Ketones NEGATIVE (NEGATIVE) mg/dL Urine Occult Blood TRACE-INTACT H (NEGATIVE) Urine Nitrite NEGATIVE (NEGATIVE) Urine Bilirubin NEGATIVE (NEGATIVE) Urine Urobilinogen 0.2 (<2.0) EU/dL Ur Leukocyte Esterase NEGATIVE (NEGATIVE) Urine RBC 0-2 (0-2/HPF) Urine WBC 0-1 (0-5/HPF) Ur Epithelial Cells OCCASIONAL (NONE-FEW) Urine Bacteria RARE (NEGATIVE) Urine Mucus LIGHT (NONE-MOD) CSF Appearance CSF Color CSF WBC (0-5) /uL CSF RBC (0-0) /uL CSF Mononuclear Cells % CSF Polymorphonuclear % Urine Opiates Screen NEGATIVE (NEGATIVE) Ur Oxycodone Screen NEGATIVE (NEGATIVE) Urine Methadone Screen NEGATIVE (NEGATIVE) Ur Barbiturates Screen NEGATIVE (NEGATIVE) Ur Phencyclidine Scrn NEGATIVE (NEGATIVE) Ur Amphetamine Screen NEGATIVE (NEGATIVE) U Methamphetamines Scrn NEGATIVE (NEGATIVE) U Benzodiazepines Scrn NEGATIVE (NEGATIVE) U Cocaine Metab Screen NEGATIVE (NEGATIVE) U Marijuana (THC) Screen POSITIVE (NEGATIVE) Monoscreen (NEG) Influenza Type A RNA (NEGATIVE) Influenza Type B RNA (NEGATIVE) RSV Rapid (NEGATIVE) SARS-CoV-2 RNA (LARRY) (NEGATIVE) 04/16/20 04/16/20 04/16/20 Range/Units 01:00 01:45 02:08 WBC (4.0-11.0) K/uL RBC (4.50-5.90) M/uL Hgb (13.0-17.0) g/dL Hct (38.0-50.0) % MCV (80.0-98.0) fL MCH (27.0-32.0) pg MCHC (31.0-37.0) g/dL RDW Std Deviation (28.0-62.0) fl RDW Coeff of Aditya (11.0-15.0) % Plt Count (150-400) K/uL MPV (7.40-12.00) fL Neut % (Auto) (48.0-80.0) % Lymph % (Auto) (16.0-40.0) % [place] % (Auto) (0.0-15.0) % Eos % (Auto) (0.0-7.0) % Baso % (Auto) (0.0-1.5) % Neut # (Auto) (1.4-5.7) K/uL Lymph # (Auto) (0.6-2.4) K/uL [place] # (Auto) (0.0-0.8) K/uL Eos # (Auto) (0.0-0.7) K/uL Baso # (Auto) (0.0-0.1) K/uL Nucleated RBC % /100WBC Nucleated RBCs # K/uL ESR (0-14) mm/hr APTT (18.6-31.3) SEC D-Dimer, Quantitative (0.0-0.50) mg/L FEU Lactate (0.20-2.00) mmol/L Sodium (136-148) mmol/L Potassium (3.5-5.1) mmol/L Chloride (98-107) mmol/L Carbon Dioxide (21.0-32.0) mmol/L BUN (7.0-18.0) mg/dL Creatinine (0.8-1.3) mg/dL Est Cr Clr Drug Dosing mL/min Estimated GFR (MDRD) ml/min Glucose (74-106) mg/dL Calcium (8.5-10.1) mg/dL Phosphorus (2.6-4.7) mg/dL Magnesium (1.8-2.4) mg/dL Total Bilirubin (0.2-1.0) mg/dL AST (15-37) IU/L ALT (14-63) IU/L Alkaline Phosphatase (46-116) U/L Creatine Kinase (26-308) U/L CK-MB (CK-2) 0.7 (0-3.6) ng/mL Troponin I < 0.050 (0.000-0.056) ng/mL C-Reactive Protein (0.00-0.90) mg/dL B-Natriuretic Peptide (<100) PG/ML Total Protein (6.4-8.2) g/dL Albumin (3.4-5.0) g/dL Globulin (2.6-4.0) g/dL Albumin/Globulin Ratio (0.9-1.6) Lipase (73-393) U/L Urine Color Urine Appearance Urine pH (5.0-8.0) Ur Specific [place] (1.001-1.035) Urine Protein (NEGATIVE) mg/dL Urine Glucose (UA) (NEGATIVE) mg/dL Urine Ketones (NEGATIVE) mg/dL Urine Occult Blood (NEGATIVE) Urine Nitrite (NEGATIVE) Urine Bilirubin (NEGATIVE) Urine Urobilinogen (<2.0) EU/dL Ur Leukocyte Esterase (NEGATIVE) Urine RBC (0-2/HPF) Urine WBC (0-5/HPF) Ur Epithelial Cells (NONE-FEW) Urine Bacteria (NEGATIVE) Urine Mucus (NONE-MOD) CSF Appearance CLEAR CSF Color COLORLESS CSF WBC 3 (0-5) /uL CSF RBC 259 H (0-0) /uL CSF Mononuclear Cells 67.0 % CSF Polymorphonuclear 33.0 % Urine Opiates Screen (NEGATIVE) Ur Oxycodone Screen (NEGATIVE) Urine Methadone Screen (NEGATIVE) Ur Barbiturates Screen (NEGATIVE) Ur Phencyclidine Scrn (NEGATIVE) Ur Amphetamine Screen (NEGATIVE) U Methamphetamines Scrn (NEGATIVE) U Benzodiazepines Scrn (NEGATIVE) U Cocaine Metab Screen (NEGATIVE) U Marijuana (THC) Screen (NEGATIVE) Monoscreen (NEG) Influenza Type A RNA NEGATIVE (NEGATIVE) Influenza Type B RNA NEGATIVE (NEGATIVE) RSV Rapid NEGATIVE (NEGATIVE) SARS-CoV-2 RNA (LARRY) NEGATIVE (NEGATIVE) 04/16/20 04/16/20 Range/Units 06:02 06:02 WBC 7.39 (4.0-11.0) K/uL RBC 3.85 L (4.50-5.90) M/uL Hgb 11.4 L (13.0-17.0) g/dL Hct 34.7 L (38.0-50.0) % MCV 90.1 (80.0-98.0) fL MCH 29.6 (27.0-32.0) pg MCHC 32.9 (31.0-37.0) g/dL RDW Std Deviation 39.5 (28.0-62.0) fl RDW Coeff of Aditya 12 (11.0-15.0) % Plt Count 183 (150-400) K/uL MPV 10.20 (7.40-12.00) fL Neut % (Auto) 86.8 H (48.0-80.0) % Lymph % (Auto) 10.3 L (16.0-40.0) % [place] % (Auto) 2.7 (0.0-15.0) % Eos % (Auto) 0.1 (0.0-7.0) % Baso % (Auto) 0.1 (0.0-1.5) % Neut # (Auto) 6.4 H (1.4-5.7) K/uL Lymph # (Auto) 0.8 (0.6-2.4) K/uL [place] # (Auto) 0.2 (0.0-0.8) K/uL Eos # (Auto) 0.0 (0.0-0.7) K/uL Baso # (Auto) 0.0 (0.0-0.1) K/uL Nucleated RBC % 0.0 /100WBC Nucleated RBCs # 0 K/uL ESR (0-14) mm/hr APTT (18.6-31.3) SEC D-Dimer, Quantitative (0.0-0.50) mg/L FEU Lactate (0.20-2.00) mmol/L Sodium 139 (136-148) mmol/L Potassium 4.0 (3.5-5.1) mmol/L Chloride 104 (98-107) mmol/L Carbon Dioxide 26.1 (21.0-32.0) mmol/L BUN 13 (7.0-18.0) mg/dL Creatinine 1.3 (0.8-1.3) mg/dL Est Cr Clr Drug Dosing 94.75 mL/min Estimated GFR (MDRD) > 60.0 ml/min Glucose 135 H (74-106) mg/dL Calcium 8.5 (8.5-10.1) mg/dL Phosphorus (2.6-4.7) mg/dL Magnesium (1.8-2.4) mg/dL Total Bilirubin (0.2-1.0) mg/dL AST (15-37) IU/L ALT (14-63) IU/L Alkaline Phosphatase (46-116) U/L Creatine Kinase (26-308) U/L CK-MB (CK-2) (0-3.6) ng/mL Troponin I (0.000-0.056) ng/mL C-Reactive Protein (0.00-0.90) mg/dL B-Natriuretic Peptide (<100) PG/ML Total Protein (6.4-8.2) g/dL Albumin (3.4-5.0) g/dL Globulin (2.6-4.0) g/dL Albumin/Globulin Ratio (0.9-1.6) Lipase (73-393) U/L Urine Color Urine Appearance Urine pH (5.0-8.0) Ur Specific [place] (1.001-1.035) Urine Protein (NEGATIVE) mg/dL Urine Glucose (UA) (NEGATIVE) mg/dL Urine Ketones (NEGATIVE) mg/dL Urine Occult Blood (NEGATIVE) Urine Nitrite (NEGATIVE) Urine Bilirubin (NEGATIVE) Urine Urobilinogen (<2.0) EU/dL Ur Leukocyte Esterase (NEGATIVE) Urine RBC (0-2/HPF) Urine WBC (0-5/HPF) Ur Epithelial Cells (NONE-FEW) Urine Bacteria (NEGATIVE) Urine Mucus (NONE-MOD) CSF Appearance CSF Color CSF WBC (0-5) /uL CSF RBC (0-0) /uL CSF Mononuclear Cells % CSF Polymorphonuclear % Urine Opiates Screen (NEGATIVE) Ur Oxycodone Screen (NEGATIVE) Urine Methadone Screen (NEGATIVE) Ur Barbiturates Screen (NEGATIVE) Ur Phencyclidine Scrn (NEGATIVE) Ur Amphetamine Screen (NEGATIVE) U Methamphetamines Scrn (NEGATIVE) U Benzodiazepines Scrn (NEGATIVE) U Cocaine Metab Screen (NEGATIVE) U Marijuana (THC) Screen (NEGATIVE) Monoscreen (NEG) Influenza Type A RNA (NEGATIVE) Influenza Type B RNA (NEGATIVE) RSV Rapid (NEGATIVE) SARS-CoV-2 RNA (LARRY) (NEGATIVE) Result Diagrams: 04/16/20 06:02 04/16/20 06:02 Crow Results Last 24 hrs: Microbiology 04/16/20 01:45 Gram Stain - Final Cerebral Spinal Fluid 04/15/20 23:40 Group A Streptococcus Rapid Screen - Final Throat Positive Group A Strep Ag Sepsis Event Note - Evaluation Sepsis Screening Result: Possible Sepsis Risk - Focused Exam Vital Signs: Vital Signs Temp Temp Temp Pulse Resp BP Pulse Ox 04/16/20 05:33 98.9 F 72 16 112/57 L 98 04/16/20 04:57 97 F 60 18 109/66 97 04/16/20 03:00 72 18 107/53 L 97 04/16/20 01:19 97.9 F 72 18 102/42 L 97 04/16/20 00:29 97.7 F 88 18 120/39 L 97 04/15/20 23:28 100.7 F H 04/15/20 22:40 101 F H 100 16 132/63 95 - Problem List (1) Aseptic meningitis SNOMED Code(s): 989287347 ICD Code: G03.0 - NONPYOGENIC MENINGITIS Status: Acute Current Visit: Yes (2) Elevated troponin SNOMED Code(s): 310463641, 344154014, 930935177 ICD Code: R77.8 - OTHER SPECIFIED ABNORMALITIES OF PLASMA PROTEINS Status: Acute Current Visit: Yes (3) Strep pharyngitis SNOMED Code(s): 30019921 ICD Code: J02.0 - STREPTOCOCCAL PHARYNGITIS Status: Acute Current Visit: Yes (4) Viral syndrome SNOMED Code(s): 00668979 ICD Code: B34.9 - VIRAL INFECTION, UNSPECIFIED Status: Acute Current Visit: Yes Problem List Initiated/Reviewed/Updated: Yes Orders Last 24hrs: Active Orders 24 hr Category Date Time Status Patient Status [ADT] Routine ADT 04/16/20 03:50 Active Cardiac Monitoring [RC] . DIRECTED Care 04/15/20 23:04 Active EKG Documentation Completion [RC] STAT Care 04/15/20 23:05 Active Flat in Bed [RC] ASDIRECTED Care 04/16/20 00:34 Active Procedure Tray at Bedside [RC] ASDIRECTED Care 04/16/20 00:34 Active Pulse Oximetry [RC] ASDIRECTED Care 04/15/20 23:04 Active Telemetry Monitoring [Cardiac Monitoring] [RC] Q8H Care 04/16/20 04:45 Active Up ad [place] [RC] ASDIRECTED Care 04/16/20 05:37 Active Verify Patient Consent Obtain [RC] ASDIRECTED Care 04/16/20 00:34 Active Vital Signs [RC] Q4H Care 04/16/20 05:37 Active CULTURE BLOOD [BC] Stat Lab 04/15/20 23:54 Received CULTURE BLOOD [BC] Stat Lab 04/15/20 23:59 Received CULTURE CSF + SMEAR [RM] Urgent Lab 04/16/20 01:45 Results GLUCOSE,CSF [BF] Urgent Lab 04/16/20 01:45 Received HSV 1/2 PCR [REF] Stat Lab 04/16/20 01:45 Received PROCALCITONIN [REF] Stat Lab 04/15/20 23:26 Received PROTEIN,CSF [BF] Urgent Lab 04/16/20 01:45 Received [place] VIRUS ANTIBODY, CSF Stat Lab 04/16/20 01:45 Received Acetaminophen [TylenoL] Med 04/16/20 05:37 Active 325 mg PO Q6H PRN Acyclovir [Zovirax] 1,000 mg Med 04/16/20 02:15 Active Sodium Chloride 0.9% [Normal Saline] 250 ml IV Q8H Sodium Chloride 0.9% [Normal Saline] 1,000 ml Med 04/16/20 05:45 Active IV ASDIRECTED Sodium Chloride 0.9% [Saline Flush] Med 04/15/20 23:04 Active 10 ml FLUSH ASDIRECTED PRN Sodium Chloride 0.9% [Saline Flush] Med 04/15/20 23:04 Active 2.5 ml FLUSH ASDIRECTED PRN Blood Culture x2 Reflex Set [OM.PC] Stat Oth 04/15/20 23:05 Ordered ED Lumbar Puncture Reflex [OM.PC] Click To Edit Ot 04/16/20 00:34 Ordered Saline Lock Insert [OM.PC] Stat Ot 04/15/20 23:04 Ordered Medication Orders Acetaminophen (Tylenol) 325 mg PO Q6H PRN PRN Reason: Pain/Fever Acyclovir 1,000 mg/ Sodium (Chloride) 270 mls @ 270 mls/hr IV Q8H [facility] Last Admin: 04/16/20 03:14 Dose: Not Given Documented by: GAIL Sodium Chloride (Normal Saline) 1,000 mls @ 125 mls/hr IV ASDIRECTED [facility] Last Admin: 04/16/20 06:33 Dose: 125 mls/hr Documented by: KVNG Sodium Chloride (Saline Flush) 10 ml FLUSH ASDIRECTED PRN PRN Reason: Keep Vein Open Last Admin: 04/15/20 23:28 Dose: 10 ml Documented by: IZAIAH Sodium Chloride (Saline Flush) 2.5 ml FLUSH ASDIRECTED PRN PRN Reason: Keep Vein Open Last Admin: 04/15/20 23:28 Dose: 2.5 ml Documented by: IZAIAH Assessment/Plan Comment:: Possible encephalitis vs meningitis- Acyclovir, ceftriaxone, vancomycin, Dexamethasone 10mg once in given in ED. CSF gram stain WBC=3, otherwise no pertinent findings. CSF protein, CSF glucose, HSV, [place] pending. ID at [facility] consulted and they had no further recommendations. Strep pharyngitis- Ceftriaxone CT abdomen and pelvis state possible appendicitis. Patient states that he has been having lower abdomen pain for 3-4 years with no definite diagnosis. Has been told by previous providers that he may have appendicitis or chronic constipation. Will repeat COVID test. On admission COVID was negative.
[2020-04-16] MEDS ORDERED: cefTRIAXone 2 GM in Premix Bag 1 BAG IV SCH (14:30)
--- NOTE | 2020-04-16 18:34 | PCM.DCSUM1 ---
<Mohsen Andre - Last Filed: 04/16/20 19:28> Discharge Summary - Hospital Course Free Text/Narrative:: 29 yo admitted for work-up for suspected encephalitis versus meningitis, positive strep pharyngitis. Patient states 3 week history of fevers, generalized malaise, myalgias, chills, dizziness, cervical and inguinal lymph node swelling, neck pain, headache, light sensitivity, dry eyes. Patient states that he was treated with doxycycline for left testicle swelling and inguinal lymph node tenderness prior to his current symptoms. Patient presented to the ED with shortness of breath, nausea, decreased appetite, headache, abdominal pain which was documented being localized to the right lower quadrant today, rated 7/10, nonradiating, constant. On admission patient states that his headache, sensitivity to light, abdominal pain, chills, dizziness have resolved. Patient states slight sore throat, swelling of cervical lymph nodes. Patient states abdominal pain is chronic and has had it on and off for 3 to 4 years. Patient states that he is seen providers for his pain but was told that it was most appendicitis or chronic constipation. In the ED patient was started on acyclovir, vancomycin, ceftriaxone, dexamethasone 10 mg IV. Initial troponin was slightly elevated at 0.058, repeat troponin less than 0.05. Lumbar puncture completed, CSF Gram stain was negative. CSF appearance clear, colorless, CSF WBC = 3. Negative for mono, influenza type A, type B, RSV. Covid negative. Blood blood culture pending, HSV 1 and 2 PCR, West Nile virus, CSF glucose, CSF protein orders are pending. Head CT negative. Patient was discharged the same day with no complaints of headache, dizziness, abdominal pain, fever, chills, nausea, vomiting. Patient states that he still feels "out of it, like a mental fog". Patient re-tested for covid, which was negative. Patient stated that he would like to go home and will follow up with general surgery for possible appendicitis and with ENT for his swollen cervical lymph nodes which he states have bothered him for years. Patient also states th at he has metal plates in his jaw which might be aggravating his symptoms. He recounts an episode years ago where one of his metal plates become infected and required removal. Patient understands that the hospitalist teams recommendation would be for him to say one more night, pending lab work results. - Discharge Data Discharge Date: 04/16/20 Discharge Disposition: Home, Self-Care 01 Condition: Fair - Referral to Home Health Primary Care Physician: PCP None - Discharge Diagnosis/Problem(s) (1) Aseptic meningitis SNOMED Code(s): 641161132 ICD Code: G03.0 - NONPYOGENIC MENINGITIS Status: Acute (2) Elevated troponin SNOMED Code(s): 316158762, 677499471, 393624427 ICD Code: R77.8 - OTHER SPECIFIED ABNORMALITIES OF PLASMA PROTEINS Status: Acute (3) Strep pharyngitis SNOMED Code(s): 36205016 ICD Code: J02.0 - STREPTOCOCCAL PHARYNGITIS Status: Acute (4) Viral syndrome SNOMED Code(s): 11417386 ICD Code: B34.9 - VIRAL INFECTION, UNSPECIFIED Status: Acute - Patient Instructions Diet: Usual Diet as Tolerated Activity: As Tolerated Driving: Do Not Drive Showering/Bathing: May Shower Notify Provider of: Fever, Increased Pain, Swelling and Redness, Drainage, Nausea and/or Vomiting - Discharge Plan *PRESCRIPTION DRUG MONITORING PROGRAM REVIEWED*: Not Applicable *COPY OF PRESCRIPTION DRUG MONITORING REPORT IN PATIENT EMI: Not Applicable Prescriptions/Med Rec: Amoxicillin 500 mg PO BID 9 Days #18 tab Home Medications: Home Meds Amoxicillin 500 mg PO BID 9 Days #18 tab 04/16/20 [Rx] Patient Handouts: Appendicitis, Adult, Troponin Test Referrals: Kae Woodward PA [Physician Coating Technician] - 04/23/20 10:00 am - Discharge Summary/Plan Comment DC Time >30 min.: Yes - Review of Systems General: Denies: Fever, Chills Pulmonary: Denies: Shortness of Breath, Cough Cardiovascular: Denies: Chest Pain, Dyspnea on Exertion Gastrointestinal: Denies: Abdominal Pain, Nausea, Vomiting Neurological: Denies: Confusion, Dizziness, Headache, Trouble Speaking, Difficulty Walking - Patient Data Vitals - Most Recent: Last Vital Signs Temp 96.2 F L 04/16/20 16:00 Pulse 59 L 04/16/20 16:00 Resp 22 H 04/16/20 16:00 BP 129/72 04/16/20 16:00 Pulse Ox 97 04/16/20 16:00 Weight - Most Recent: 97.386 kg I&O - Last 24 hours: Intake & Output 04/16/20 04/16/20 04/16/20 06:59 14:59 22:59 Intake Total 920 Output Total 3200 Balance -2280 Lab Results - Last 24 hrs: Laboratory Results - last 24 hr 04/15/20 04/15/20 04/15/20 Range/Units 23:26 23:26 23:26 WBC 10.76 (4.0-11.0) K/uL RBC 3.99 L (4.50-5.90) M/uL Hgb 12.1 L (13.0-17.0) g/dL Hct 35.5 L (38.0-50.0) % MCV 89.0 (80.0-98.0) fL MCH 30.3 (27.0-32.0) pg MCHC 34.1 (31.0-37.0) g/dL RDW Std Deviation 38.9 (28.0-62.0) fl RDW Coeff of Aditya 12 (11.0-15.0) % Plt Count 243 (150-400) K/uL MPV 10.10 (7.40-12.00) fL Neut % (Auto) 71.8 (48.0-80.0) % Lymph % (Auto) 15.2 L (16.0-40.0) % Archer % (Auto) 12.5 (0.0-15.0) % Eos % (Auto) 0.2 (0.0-7.0) % Baso % (Auto) 0.3 (0.0-1.5) % Neut # (Auto) 7.7 H (1.4-5.7) K/uL Lymph # (Auto) 1.6 (0.6-2.4) K/uL Archer # (Auto) 1.3 H (0.0-0.8) K/uL Eos # (Auto) 0.0 (0.0-0.7) K/uL Baso # (Auto) 0.0 (0.0-0.1) K/uL Nucleated RBC % 0.0 /100WBC Nucleated RBCs # 0 K/uL ESR (0-14) mm/hr APTT (18.6-31.3) SEC D-Dimer, Quantitative (0.0-0.50) mg/L FEU Lactate 0.6 (0.20-2.00) mmol/L Sodium 133 L (136-148) mmol/L Potassium 3.7 (3.5-5.1) mmol/L Chloride 99 (98-107) mmol/L Carbon Dioxide 25.4 (21.0-32.0) mmol/L BUN 16 (7.0-18.0) mg/dL Creatinine 1.2 (0.8-1.3) mg/dL Est Cr Clr Drug Dosing 102.65 mL/min Estimated GFR (MDRD) > 60.0 ml/min Glucose 112 H (74-106) mg/dL Calcium 8.9 (8.5-10.1) mg/dL Phosphorus 2.7 (2.6-4.7) mg/dL Magnesium 2.0 (1.8-2.4) mg/dL Total Bilirubin 0.5 (0.2-1.0) mg/dL AST 33 (15-37) IU/L ALT 37 (14-63) IU/L Alkaline Phosphatase 65 (46-116) U/L Creatine Kinase 866 H (26-308) U/L CK-MB (CK-2) (0-3.6) ng/mL Troponin I 0.058 H* (0.000-0.056) ng/mL C-Reactive Protein 8.60 H (0.00-0.90) mg/dL B-Natriuretic Peptide (<100) PG/ML Total Protein 7.1 (6.4-8.2) g/dL Albumin 4.0 (3.4-5.0) g/dL Globulin 3.1 (2.6-4.0) g/dL Albumin/Globulin Ratio 1.3 (0.9-1.6) Lipase 112 (73-393) U/L Urine Color Urine Appearance Urine pH (5.0-8.0) Ur Specific Sanders (1.001-1.035) Urine Protein (NEGATIVE) mg/dL Urine Glucose (UA) (NEGATIVE) mg/dL Urine Ketones (NEGATIVE) mg/dL Urine Occult Blood (NEGATIVE) Urine Nitrite (NEGATIVE) Urine Bilirubin (NEGATIVE) Urine Urobilinogen (<2.0) EU/dL Ur Leukocyte Esterase (NEGATIVE) Urine RBC (0-2/HPF) Urine WBC (0-5/HPF) Ur Epithelial Cells (NONE-FEW) Urine Bacteria (NEGATIVE) Urine Mucus (NONE-MOD) CSF Appearance CSF Color CSF WBC (0-5) /uL CSF RBC (0-0) /uL CSF Mononuclear Cells % CSF Polymorphonuclear % Urine Opiates Screen (NEGATIVE) Ur Oxycodone Screen (NEGATIVE) Urine Methadone Screen (NEGATIVE) Ur Barbiturates Screen (NEGATIVE) Ur Phencyclidine Scrn (NEGATIVE) Ur Amphetamine Screen (NEGATIVE) U Methamphetamines Scrn (NEGATIVE) U Benzodiazepines Scrn (NEGATIVE) U Cocaine Metab Screen (NEGATIVE) U Marijuana (THC) Screen (NEGATIVE) Monoscreen (NEG) Influenza Type A RNA (NEGATIVE) Influenza Type B RNA (NEGATIVE) RSV Rapid (NEGATIVE) SARS-CoV-2 RNA (LARRY) (NEGATIVE) 04/15/20 04/15/20 04/15/20 Range/Units 23:26 23:26 23:26 WBC (4.0-11.0) K/uL RBC (4.50-5.90) M/uL Hgb (13.0-17.0) g/dL Hct (38.0-50.0) % MCV (80.0-98.0) fL MCH (27.0-32.0) pg MCHC (31.0-37.0) g/dL RDW Std Deviation (28.0-62.0) fl RDW Coeff of Aditya (11.0-15.0) % Plt Count (150-400) K/uL MPV (7.40-12.00) fL Neut % (Auto) (48.0-80.0) % Lymph % (Auto) (16.0-40.0) % Archer % (Auto) (0.0-15.0) % Eos % (Auto) (0.0-7.0) % Baso % (Auto) (0.0-1.5) % Neut # (Auto) (1.4-5.7) K/uL Lymph # (Auto) (0.6-2.4) K/uL Archer # (Auto) (0.0-0.8) K/uL Eos # (Auto) (0.0-0.7) K/uL Baso # (Auto) (0.0-0.1) K/uL Nucleated RBC % /100WBC Nucleated RBCs # K/uL ESR 14 (0-14) mm/hr APTT 26.0 (18.6-31.3) SEC D-Dimer, Quantitative 0.36 (0.0-0.50) mg/L FEU Lactate (0.20-2.00) mmol/L Sodium (136-148) mmol/L Potassium (3.5-5.1) mmol/L Chloride (98-107) mmol/L Carbon Dioxide (21.0-32.0) mmol/L BUN (7.0-18.0) mg/dL Creatinine (0.8-1.3) mg/dL Est Cr Clr Drug Dosing mL/min Estimated GFR (MDRD) ml/min Glucose (74-106) mg/dL Calcium (8.5-10.1) mg/dL Phosphorus (2.6-4.7) mg/dL Magnesium (1.8-2.4) mg/dL Total Bilirubin (0.2-1.0) mg/dL AST (15-37) IU/L ALT (14-63) IU/L Alkaline Phosphatase (46-116) U/L Creatine Kinase (26-308) U/L CK-MB (CK-2) (0-3.6) ng/mL Troponin I (0.000-0.056) ng/mL C-Reactive Protein (0.00-0.90) mg/dL B-Natriuretic Peptide (<100) PG/ML Total Protein (6.4-8.2) g/dL Albumin (3.4-5.0) g/dL Globulin (2.6-4.0) g/dL Albumin/Globulin Ratio (0.9-1.6) Lipase (73-393) U/L Urine Color Urine Appearance Urine pH (5.0-8.0) Ur Specific Sanders (1.001-1.035) Urine Protein (NEGATIVE) mg/dL Urine Glucose (UA) (NEGATIVE) mg/dL Urine Ketones (NEGATIVE) mg/dL Urine Occult Blood (NEGATIVE) Urine Nitrite (NEGATIVE) Urine Bilirubin (NEGATIVE) Urine Urobilinogen (<2.0) EU/dL Ur Leukocyte Esterase (NEGATIVE) Urine RBC (0-2/HPF) Urine WBC (0-5/HPF) Ur Epithelial Cells (NONE-FEW) Urine Bacteria (NEGATIVE) Urine Mucus (NONE-MOD) CSF Appearance CSF Color CSF WBC (0-5) /uL CSF RBC (0-0) /uL CSF Mononuclear Cells % CSF Polymorphonuclear % Urine Opiates Screen (NEGATIVE) Ur Oxycodone Screen (NEGATIVE) Urine Methadone Screen (NEGATIVE) Ur Barbiturates Screen (NEGATIVE) Ur Phencyclidine Scrn (NEGATIVE) Ur Amphetamine Screen (NEGATIVE) U Methamphetamines Scrn (NEGATIVE) U Benzodiazepines Scrn (NEGATIVE) U Cocaine Metab Screen (NEGATIVE) U Marijuana (THC) Screen (NEGATIVE) Monoscreen NEGATIVE (NEG) Influenza Type A RNA (NEGATIVE) Influenza Type B RNA (NEGATIVE) RSV Rapid (NEGATIVE) SARS-CoV-2 RNA (LARRY) (NEGATIVE) 04/15/20 04/16/20 04/16/20 Range/Units 23:26 00:30 00:30 WBC (4.0-11.0) K/uL RBC (4.50-5.90) M/uL Hgb (13.0-17.0) g/dL Hct (38.0-50.0) % MCV (80.0-98.0) fL MCH (27.0-32.0) pg MCHC (31.0-37.0) g/dL RDW Std Deviation (28.0-62.0) fl RDW Coeff of Aditya (11.0-15.0) % Plt Count (150-400) K/uL MPV (7.40-12.00) fL Neut % (Auto) (48.0-80.0) % Lymph % (Auto) (16.0-40.0) % Archer % (Auto) (0.0-15.0) % Eos % (Auto) (0.0-7.0) % Baso % (Auto) (0.0-1.5) % Neut # (Auto) (1.4-5.7) K/uL Lymph # (Auto) (0.6-2.4) K/uL Archer # (Auto) (0.0-0.8) K/uL Eos # (Auto) (0.0-0.7) K/uL Baso # (Auto) (0.0-0.1) K/uL Nucleated RBC % /100WBC Nucleated RBCs # K/uL ESR (0-14) mm/hr APTT (18.6-31.3) SEC D-Dimer, Quantitative (0.0-0.50) mg/L FEU Lactate (0.20-2.00) mmol/L Sodium (136-148) mmol/L Potassium (3.5-5.1) mmol/L Chloride (98-107) mmol/L Carbon Dioxide (21.0-32.0) mmol/L BUN (7.0-18.0) mg/dL Creatinine (0.8-1.3) mg/dL Est Cr Clr Drug Dosing mL/min Estimated GFR (MDRD) ml/min Glucose (74-106) mg/dL Calcium (8.5-10.1) mg/dL Phosphorus (2.6-4.7) mg/dL Magnesium (1.8-2.4) mg/dL Total Bilirubin (0.2-1.0) mg/dL AST (15-37) IU/L ALT (14-63) IU/L Alkaline Phosphatase (46-116) U/L Creatine Kinase (26-308) U/L CK-MB (CK-2) (0-3.6) ng/mL Troponin I (0.000-0.056) ng/mL C-Reactive Protein (0.00-0.90) mg/dL B-Natriuretic Peptide 14 (<100) PG/ML Total Protein (6.4-8.2) g/dL Albumin (3.4-5.0) g/dL Globulin (2.6-4.0) g/dL Albumin/Globulin Ratio (0.9-1.6) Lipase (73-393) U/L Urine Color YELLOW Urine Appearance CLEAR Urine pH 6.0 (5.0-8.0) Ur Specific Sanders 1.020 (1.001-1.035) Urine Protein NEGATIVE (NEGATIVE) mg/dL Urine Glucose (UA) NEGATIVE (NEGATIVE) mg/dL Urine Ketones NEGATIVE (NEGATIVE) mg/dL Urine Occult Blood TRACE-INTACT H (NEGATIVE) Urine Nitrite NEGATIVE (NEGATIVE) Urine Bilirubin NEGATIVE (NEGATIVE) Urine Urobilinogen 0.2 (<2.0) EU/dL Ur Leukocyte Esterase NEGATIVE (NEGATIVE) Urine RBC 0-2 (0-2/HPF) Urine WBC 0-1 (0-5/HPF) Ur Epithelial Cells OCCASIONAL (NONE-FEW) Urine Bacteria RARE (NEGATIVE) Urine Mucus LIGHT (NONE-MOD) CSF Appearance CSF Color CSF WBC (0-5) /uL CSF RBC (0-0) /uL CSF Mononuclear Cells % CSF Polymorphonuclear % Urine Opiates Screen NEGATIVE (NEGATIVE) Ur Oxycodone Screen NEGATIVE (NEGATIVE) Urine Methadone Screen NEGATIVE (NEGATIVE) Ur Barbiturates Screen NEGATIVE (NEGATIVE) Ur Phencyclidine Scrn NEGATIVE (NEGATIVE) Ur Amphetamine Screen NEGATIVE (NEGATIVE) U Methamphetamines Scrn NEGATIVE (NEGATIVE) U Benzodiazepines Scrn NEGATIVE (NEGATIVE) U Cocaine Metab Screen NEGATIVE (NEGATIVE) U Marijuana (THC) Screen POSITIVE (NEGATIVE) Monoscreen (NEG) Influenza Type A RNA (NEGATIVE) Influenza Type B RNA (NEGATIVE) RSV Rapid (NEGATIVE) SARS-CoV-2 RNA (LARRY) (NEGATIVE) 04/16/20 04/16/20 04/16/20 Range/Units 01:00 01:45 02:08 WBC (4.0-11.0) K/uL RBC (4.50-5.90) M/uL Hgb (13.0-17.0) g/dL Hct (38.0-50.0) % MCV (80.0-98.0) fL MCH (27.0-32.0) pg MCHC (31.0-37.0) g/dL RDW Std Deviation (28.0-62.0) fl RDW Coeff of Aditya (11.0-15.0) % Plt Count (150-400) K/uL MPV (7.40-12.00) fL Neut % (Auto) (48.0-80.0) % Lymph % (Auto) (16.0-40.0) % Archer % (Auto) (0.0-15.0) % Eos % (Auto) (0.0-7.0) % Baso % (Auto) (0.0-1.5) % Neut # (Auto) (1.4-5.7) K/uL Lymph # (Auto) (0.6-2.4) K/uL Archer # (Auto) (0.0-0.8) K/uL Eos # (Auto) (0.0-0.7) K/uL Baso # (Auto) (0.0-0.1) K/uL Nucleated RBC % /100WBC Nucleated RBCs # K/uL ESR (0-14) mm/hr APTT (18.6-31.3) SEC D-Dimer, Quantitative (0.0-0.50) mg/L FEU Lactate (0.20-2.00) mmol/L Sodium (136-148) mmol/L Potassium (3.5-5.1) mmol/L Chloride (98-107) mmol/L Carbon Dioxide (21.0-32.0) mmol/L BUN (7.0-18.0) mg/dL Creatinine (0.8-1.3) mg/dL Est Cr Clr Drug Dosing mL/min Estimated GFR (MDRD) ml/min Glucose (74-106) mg/dL Calcium (8.5-10.1) mg/dL Phosphorus (2.6-4.7) mg/dL Magnesium (1.8-2.4) mg/dL Total Bilirubin (0.2-1.0) mg/dL AST (15-37) IU/L ALT (14-63) IU/L Alkaline Phosphatase (46-116) U/L Creatine Kinase (26-308) U/L CK-MB (CK-2) 0.7 (0-3.6) ng/mL Troponin I < 0.050 (0.000-0.056) ng/mL C-Reactive Protein (0.00-0.90) mg/dL B-Natriuretic Peptide (<100) PG/ML Total Protein (6.4-8.2) g/dL Albumin (3.4-5.0) g/dL Globulin (2.6-4.0) g/dL Albumin/Globulin Ratio (0.9-1.6) Lipase (73-393) U/L Urine Color Urine Appearance Urine pH (5.0-8.0) Ur Specific Sanders (1.001-1.035) Urine Protein (NEGATIVE) mg/dL Urine Glucose (UA) (NEGATIVE) mg/dL Urine Ketones (NEGATIVE) mg/dL Urine Occult Blood (NEGATIVE) Urine Nitrite (NEGATIVE) Urine Bilirubin (NEGATIVE) Urine Urobilinogen (<2.0) EU/dL Ur Leukocyte Esterase (NEGATIVE) Urine RBC (0-2/HPF) Urine WBC (0-5/HPF) Ur Epithelial Cells (NONE-FEW) Urine Bacteria (NEGATIVE) Urine Mucus (NONE-MOD) CSF Appearance CLEAR CSF Color COLORLESS CSF WBC 3 (0-5) /uL CSF RBC 259 H (0-0) /uL CSF Mononuclear Cells 67.0 % CSF Polymorphonuclear 33.0 % Urine Opiates Screen (NEGATIVE) Ur Oxycodone Screen (NEGATIVE) Urine Methadone Screen (NEGATIVE) Ur Barbiturates Screen (NEGATIVE) Ur Phencyclidine Scrn (NEGATIVE) Ur Amphetamine Screen (NEGATIVE) U Methamphetamines Scrn (NEGATIVE) U Benzodiazepines Scrn (NEGATIVE) U Cocaine Metab Screen (NEGATIVE) U Marijuana (THC) Screen (NEGATIVE) Monoscreen (NEG) Influenza Type A RNA NEGATIVE (NEGATIVE) Influenza Type B RNA NEGATIVE (NEGATIVE) RSV Rapid NEGATIVE (NEGATIVE) SARS-CoV-2 RNA (LARRY) NEGATIVE (NEGATIVE) 04/16/20 04/16/20 04/16/20 Range/Units 06:02 06:02 16:26 WBC 7.39 (4.0-11.0) K/uL RBC 3.85 L (4.50-5.90) M/uL Hgb 11.4 L (13.0-17.0) g/dL Hct 34.7 L (38.0-50.0) % MCV 90.1 (80.0-98.0) fL MCH 29.6 (27.0-32.0) pg MCHC 32.9 (31.0-37.0) g/dL RDW Std Deviation 39.5 (28.0-62.0) fl RDW Coeff of Aditya 12 (11.0-15.0) % Plt Count 183 (150-400) K/uL MPV 10.20 (7.40-12.00) fL Neut % (Auto) 86.8 H (48.0-80.0) % Lymph % (Auto) 10.3 L (16.0-40.0) % Archer % (Auto) 2.7 (0.0-15.0) % Eos % (Auto) 0.1 (0.0-7.0) % Baso % (Auto) 0.1 (0.0-1.5) % Neut # (Auto) 6.4 H (1.4-5.7) K/uL Lymph # (Auto) 0.8 (0.6-2.4) K/uL Archer # (Auto) 0.2 (0.0-0.8) K/uL Eos # (Auto) 0.0 (0.0-0.7) K/uL Baso # (Auto) 0.0 (0.0-0.1) K/uL Nucleated RBC % 0.0 /100WBC Nucleated RBCs # 0 K/uL ESR (0-14) mm/hr APTT (18.6-31.3) SEC D-Dimer, Quantitative (0.0-0.50) mg/L FEU Lactate (0.20-2.00) mmol/L Sodium 139 (136-148) mmol/L Potassium 4.0 (3.5-5.1) mmol/L Chloride 104 (98-107) mmol/L Carbon Dioxide 26.1 (21.0-32.0) mmol/L BUN 13 (7.0-18.0) mg/dL Creatinine 1.3 (0.8-1.3) mg/dL Est Cr Clr Drug Dosing 94.75 mL/min Estimated GFR (MDRD) > 60.0 ml/min Glucose 135 H (74-106) mg/dL Calcium 8.5 (8.5-10.1) mg/dL Phosphorus (2.6-4.7) mg/dL Magnesium (1.8-2.4) mg/dL Total Bilirubin (0.2-1.0) mg/dL AST (15-37) IU/L ALT (14-63) IU/L Alkaline Phosphatase (46-116) U/L Creatine Kinase (26-308) U/L CK-MB (CK-2) (0-3.6) ng/mL Troponin I (0.000-0.056) ng/mL C-Reactive Protein (0.00-0.90) mg/dL B-Natriuretic Peptide (<100) PG/ML Total Protein (6.4-8.2) g/dL Albumin (3.4-5.0) g/dL Globulin (2.6-4.0) g/dL Albumin/Globulin Ratio (0.9-1.6) Lipase (73-393) U/L Urine Color Urine Appearance Urine pH (5.0-8.0) Ur Specific Sanders (1.001-1.035) Urine Protein (NEGATIVE) mg/dL Urine Glucose (UA) (NEGATIVE) mg/dL Urine Ketones (NEGATIVE) mg/dL Urine Occult Blood (NEGATIVE) Urine Nitrite (NEGATIVE) Urine Bilirubin (NEGATIVE) Urine Urobilinogen (<2.0) EU/dL Ur Leukocyte Esterase (NEGATIVE) Urine RBC (0-2/HPF) Urine WBC (0-5/HPF) Ur Epithelial Cells (NONE-FEW) Urine Bacteria (NEGATIVE) Urine Mucus (NONE-MOD) CSF Appearance CSF Color CSF WBC (0-5) /uL CSF RBC (0-0) /uL CSF Mononuclear Cells % CSF Polymorphonuclear % Urine Opiates Screen (NEGATIVE) Ur Oxycodone Screen (NEGATIVE) Urine Methadone Screen (NEGATIVE) Ur Barbiturates Screen (NEGATIVE) Ur Phencyclidine Scrn (NEGATIVE) Ur Amphetamine Screen (NEGATIVE) U Methamphetamines Scrn (NEGATIVE) U Benzodiazepines Scrn (NEGATIVE) U Cocaine Metab Screen (NEGATIVE) U Marijuana (THC) Screen (NEGATIVE) Monoscreen (NEG) Influenza Type A RNA (NEGATIVE) Influenza Type B RNA (NEGATIVE) RSV Rapid (NEGATIVE) SARS-CoV-2 RNA (LARRY) NEGATIVE (NEGATIVE) DALY Results - Last 24 hrs: Microbiology 04/16/20 01:45 Gram Stain - Final Cerebral Spinal Fluid 04/15/20 23:40 Group A Streptococcus Rapid Screen - Final Throat Positive Group A Strep Ag Med Orders - Current: Current Medications Acetaminophen (Tylenol) 325 mg PO Q6H PRN PRN Reason: Pain/Fever Sodium Chloride (Normal Saline) 1,000 mls @ 125 mls/hr IV ASDIRECTED [facility] Last Admin: 04/16/20 06:33 Dose: 125 mls/hr Documented by: Vancomycin HCl 1.5 gm/ Premix 300 mls @ 200 mls/hr IV Q8H [facility] Last Admin: 04/16/20 11:36 Dose: 200 mls/hr Documented by: Ceftriaxone Sodium/Dextrose 2 (gm/ Premix) 50 mls @ 100 mls/hr IV Q24H [facility] Last Admin: 04/16/20 15:36 Dose: 100 mls/hr Documented by: Acyclovir 1,000 mg/ Sodium (Chloride) 270 mls @ 270 mls/hr IV Q8H [facility] Last Admin: 04/16/20 11:42 Dose: 270 mls/hr Documented by: Sodium Chloride (Saline Flush) 10 ml FLUSH ASDIRECTED PRN PRN Reason: Keep Vein Open Last Admin: 04/15/20 23:28 Dose: 10 ml Documented by: Sodium Chloride (Saline Flush) 2.5 ml FLUSH ASDIRECTED PRN PRN Reason: Keep Vein Open Last Admin: 04/15/20 23:28 Dose: 2.5 ml Documented by: Vancomycin HCl (Pharmacy To Dose - Vancomycin) 1 dose .XX ASDIRECTED DEISY Discontinued Medications Acetaminophen (Tylenol Extra Strength) 1,000 mg PO ONETIME ONE Stop: 04/15/20 23:16 Last Admin: 04/15/20 23:28 Dose: 1,000 mg Documented by: Ceftriaxone Sodium (Rocephin) 2 gm IVPUSH ONETIME ONE Stop: 04/16/20 02:08 Last Admin: 04/16/20 02:18 Dose: Not Given Documented by: Dexamethasone (Decadron) 10 mg IVPUSH ONETIME ONE Stop: 04/16/20 02:08 Last Admin: 04/16/20 02:16 Dose: 10 mg Documented by: Diphenhydramine HCl (Benadryl) 50 mg IVPUSH ONETIME ONE Stop: 04/15/20 23:55 Last Admin: 04/16/20 00:26 Dose: Not Given Documented by: Lactated Ringer's (Ringers, Lactated) 1,000 mls @ 999 mls/hr IV .BOLUS ONE Stop: 04/16/20 00:04 Last Admin: 04/15/20 23:28 Dose: 999 mls/hr Documented by: Lactated Ringer's (Ringers, Lactated) 1,000 mls @ 999 mls/hr IV .BOLUS ONE Stop: 04/16/20 02:07 Last Admin: 04/16/20 01:12 Dose: 999 mls/hr Documented by: Acyclovir 1,000 mg/ Sodium (Chloride) 270 mls @ 270 mls/hr IV Q8H DEISY Last Admin: 04/16/20 11:51 Dose: Not Given Documented by: Ceftriaxone Sodium/Dextrose 2 (gm/ Premix) 50 mls @ 100 mls/hr IV ONETIME ONE Stop: 04/16/20 02:47 Last Admin: 04/16/20 02:30 Dose: 100 mls/hr Documented by: Vancomycin HCl 1.5 gm/ Premix 300 mls @ 300 mls/hr IV ONETIME ONE Stop: 04/16/20 02:39 Last Admin: 04/16/20 06:33 Dose: 300 mls/hr Documented by: Acyclovir 1,000 mg/ Sodium (Chloride) 270 mls @ 250 mls/hr IV ONETIME ONE Stop: 04/16/20 04:15 Last Admin: 04/16/20 03:12 Dose: 250 mls/hr Documented by: Iopamidol (Isovue Multipack-370 (76%)) 100 ml IVPUSH ONETIME STA Stop: 04/16/20 01:09 Last Admin: 04/16/20 01:48 Dose: 100 ml Documented by: Ketorolac Tromethamine (Toradol) 30 mg IVPUSH ONETIME ONE Stop: 04/15/20 23:55 Last Admin: 04/16/20 00:23 Dose: 30 mg Documented by: Lidocaine HCl (Xylocaine-Mpf 1%) Confirm Administered Dose 5 ml .ROUTE .STK-MED ONE Stop: 04/16/20 01:53 Last Admin: 04/16/20 01:57 Dose: Not Given Documented by: Lidocaine HCl (Xylocaine-Mpf 1%) 5 ml INJECT ONETIME ONE Stop: 04/16/20 01:57 Last Admin: 04/16/20 02:03 Dose: 5 ml Documented by: Metoclopramide HCl (Reglan) 10 mg IVPUSH ONETIME ONE Stop: 04/15/20 23:55 Last Admin: 04/16/20 00:23 Dose: 10 mg Documented by: Vancomycin HCl (Vancomycin) 1,462.83 mg 15 mg/kg (1462.83 mg) IV Q12H DESIY Last Admin: 04/16/20 03:00 Dose: Not Given Documented by: - Exam General: Reports: Alert, Obtunded Lungs: Reports: Clear to Auscultation, Normal Respiratory Effort Cardiovascular: Reports: Regular Rate, Regular Rhythm GI/Abdominal Exam: Normal Bowel Sounds, Soft, Non-Tender Extremities: No Pedal Edema <Daniel Post - Last Filed: 04/17/20 15:33> Discharge Summary - Referral to Home Health Primary Care Physician: PCP None - Patient Data Vitals - Most Recent: Last Vital Signs Temp 35.7 C L 04/16/20 16:00 Pulse 59 L 04/16/20 16:00 Resp 22 H 12/11/20 16:00 BP 129/72 04/16/20 16:00 Pulse Ox 97 04/16/20 16:00 Lab Results - Last 24 hrs: Laboratory Results - last 24 hr 04/16/20 04/16/20 Range/Units 01:45 16:26 CSF Glucose 65.0 (40-70) mg/dL SARS-CoV-2 RNA (LARRY) NEGATIVE (NEGATIVE) DALY Results - Last 24 hrs: Microbiology 04/16/20 01:45 Gram Stain - Final Cerebral Spinal Fluid CSF Culture - Preliminary Staphylococcus Coagulase Neg 04/15/20 23:59 Aerobic Blood Culture - Preliminary Blood - Venous - Lab Draw NO GROWTH AFTER 1 DAY Anaerobic Blood Culture - Preliminary NO GROWTH AFTER 1 DAY 04/15/20 23:54 Aerobic Blood Culture - Preliminary Blood - Venous NO GROWTH AFTER 1 DAY Anaerobic Blood Culture - Preliminary NO GROWTH AFTER 1 DAY Med Orders - Current: Current Medications Discontinued Medications Acetaminophen (Tylenol Extra Strength) 1,000 mg PO ONETIME ONE Stop: 04/15/20 23:16 Last Admin: 04/15/20 23:28 Dose: 1,000 mg Documented by: Acetaminophen (Tylenol) 325 mg PO Q6H PRN PRN Reason: Pain/Fever Ceftriaxone Sodium (Rocephin) 2 gm IVPUSH ONETIME ONE Stop: 04/16/20 02:08 Last Admin: 04/16/20 02:18 Dose: Not Given Documented by: Dexamethasone (Decadron) 10 mg IVPUSH ONETIME ONE Stop: 04/16/20 02:08 Last Admin: 04/16/20 02:16 Dose: 10 mg Documented by: Diphenhydramine HCl (Benadryl) 50 mg IVPUSH ONETIME ONE Stop: 04/15/20 23:55 Last Admin: 04/16/20 00:26 Dose: Not Given Documented by: Lactated Ringer's (Ringers, Lactated) 1,000 mls @ 999 mls/hr IV .BOLUS ONE Stop: 04/16/20 00:04 Last Admin: 04/15/20 23:28 Dose: 999 mls/hr Documented by: Lactated Ringer's (Ringers, Lactated) 1,000 mls @ 999 mls/hr IV .BOLUS ONE Stop: 04/16/20 02:07 Last Admin: 04/16/20 01:12 Dose: 999 mls/hr Documented by: Acyclovir 1,000 mg/ Sodium (Chloride) 270 mls @ 270 mls/hr IV Q8H [facility] Last Admin: 04/16/20 11:51 Dose: Not Given Documented by: Ceftriaxone Sodium/Dextrose 2 (gm/ Premix) 50 mls @ 100 mls/hr IV ONETIME ONE Stop: 04/16/20 02:47 Last Admin: 04/16/20 02:30 Dose: 100 mls/hr Documented by: Vancomycin HCl 1.5 gm/ Premix 300 mls @ 300 mls/hr IV ONETIME ONE Stop: 04/16/20 02:39 Last Admin: 04/16/20 06:33 Dose: 300 mls/hr Documented by: Acyclovir 1,000 mg/ Sodium (Chloride) 270 mls @ 250 mls/hr IV ONETIME ONE Stop: 04/16/20 04:15 Last Admin: 04/16/20 03:12 Dose: 250 mls/hr Documented by: Sodium Chloride (Normal Saline) 1,000 mls @ 125 mls/hr IV ASDIRECTED [facility] Last Admin: 04/16/20 06:33 Dose: 125 mls/hr Documented by: Vancomycin HCl 1.5 gm/ Premix 300 mls @ 200 mls/hr IV Q8H [facility] Last Admin: 04/16/20 11:36 Dose: 200 mls/hr Documented by: Ceftriaxone Sodium/Dextrose 2 (gm/ Premix) 50 mls @ 100 mls/hr IV Q24H [facility] Last Admin: 04/16/20 15:36 Dose: 100 mls/hr Documented by: Acyclovir 1,000 mg/ Sodium (Chloride) 270 mls @ 270 mls/hr IV Q8H [facility] Last Admin: 04/16/20 11:42 Dose: 270 mls/hr Documented by: Iopamidol (Isovue Multipack-370 (76%)) 100 ml IVPUSH ONETIME STA Stop: 04/16/20 01:09 Last Admin: 04/16/20 01:48 Dose: 100 ml Documented by: Ketorolac Tromethamine (Toradol) 30 mg IVPUSH ONETIME ONE Stop: 04/15/20 23:55 Last Admin: 04/16/20 00:23 Dose: 30 mg Documented by: Lidocaine HCl (Xylocaine-Mpf 1%) Confirm Administered Dose 5 ml .ROUTE .STK-MED ONE Stop: 04/16/20 01:53 Last Admin: 04/16/20 01:57 Dose: Not Given Documented by: Lidocaine HCl (Xylocaine-Mpf 1%) 5 ml INJECT ONETIME ONE Stop: 04/16/20 01:57 Last Admin: 04/16/20 02:03 Dose: 5 ml Documented by: Metoclopramide HCl (Reglan) 10 mg IVPUSH ONETIME ONE Stop: 04/15/20 23:55 Last Admin: 04/16/20 00:23 Dose: 10 mg Documented by: Sodium Chloride (Saline Flush) 10 ml FLUSH ASDIRECTED PRN PRN Reason: Keep Vein Open Last Admin: 04/15/20 23:28 Dose: 10 ml Documented by: Sodium Chloride (Saline Flush) 2.5 ml FLUSH ASDIRECTED PRN PRN Reason: Keep Vein Open Last Admin: 04/15/20 23:28 Dose: 2.5 ml Documented by: Vancomycin HCl (Vancomycin) 1,462.83 mg 15 mg/kg (1462.83 mg) IV Q12H [facility] Last Admin: 04/16/20 03:00 Dose: Not Given Documented by: Vancomycin HCl (Pharmacy To Dose - Vancomycin) 1 dose .XX ASDIRECTED DEISY - Free Text/Narrative Note: I have seen and evaluated the patient. I have discussed findings and treatment plan with resident. I agree with the assessment and plan in the following note. Patient had improving in symptoms with IV fluids, Patient tested negative for COVID twice. He did test positive for strep. CT scan showed upper limit of normal of size of appendix but no signs or symptoms of inflammation so it was felt appendicitis was very unlikely. He was discharge on amoxicillin.
== END 2020-04-16 18:58 | disposition home or self-care (01) ==
LOC: MW.ED 22:23 → MW.MS 04-16 03:50
PROVIDERS: ADMIT Internal Medicine; ATTEND Internal Medicine
DX: G03.0 Nonpyogenic meningitis (principal); R77.8 Other specified abnormalities of plasma proteins; J02.0 Streptococcal pharyngitis; B34.9 Viral infection, unspecified
CPT/HCPCS: 0241U; 36415; 62270; 70450; 71045; 74177; 80048; 80053; 80305; 81001; 82550; 82553; 82945; 83605; 83690; 83735; 83880; 84100; 84145; 84157; 84484; 85025; 85379; 85652; 85730; 86140; 86308; 86788; 86789; 87040; 87070; 87205; 87529; 87635; 87880; 89050; 96365; 96367; 96375; 96376; 99291; A9270; G0378; J0133; J0696; J1100; J1885; J2001; J2765; J3370; J7030; J7050; J7120; Q9967; 93010; 99285; U0002

== ENCOUNTER 2021-01-30 18:55 | Emergency (ER) | payer MEDICAID, OTHER, SELFPAY ==
[2021-01-31 01:26] LABS: ACETAMINOPHEN <2.0 ug/mL; BLOOD UREA NITROGEN,BUN 21 mg/dL (7.0-18.0); CARBON DIOXIDE,CO2 28.9 mmol/L (21.0-32.0); CHLORIDE,CL 101 mmol/L (98-107); GLUCOSE RANDOM 58 mg/dL (74-106); POTASSIUM,K 3.6 mmol/L (3.5-5.1); SODIUM,NA 141 mmol/L (136-148)
--- NOTE | 2021-01-31 02:47 | EDM.PDOC ---
ED HPI GENERAL MEDICAL PROBLEM - General Chief Complaint: Behavioral/Psych Stated Complaint: MENTAL HEALTH Time Seen by Provider: 01/31/21 00:41 - History of Present Illness INITIAL COMMENTS - FREE TEXT/NARRATIVE: HISTORY AND PHYSICAL: History of present illness: This is a 30-year-old gentleman with no significant past medical history who presents ER today secondary to anxiety and depression. Patient has significant life stressors including recent suicide of his brother in June and a suicide by his father approximately 4 years ago. Patient reports that his brother attempted suicide several years ago unsuccessfully and resulted in blindness and some slight brain damage. He reports that he thought his brother was doing okay and that he would not harm himself again however approximately 7-month ago, his brother killed himself with a gun. Patient reports that 4 years ago his father hung himself. Patient reports that over the last several days he has been feeling extremely anxious and depressed and nervous about what could happen to him and his children if he had harm himself. Patient reports that he has no suicidal ideation and no suicide attempt. Patient reports that he is given his knives and guns to friends told for him. Although he reports that he would never harm self he is concerned secondary to the of his brother and father both from suicide. He reports that he removed all knives and guns from his home in case he should ever have any thoughts. Patient adamantly denies having had any thoughts of suicide but has removed all weapons or guns as a precaution. Patient reports that he has been feeling extremely anxious and depressed thinking about the of his brother and father and has been feeling a sense of doom coming over him. Patient denies any recent fevers, shakes, chills, nausea, vomiting, diarrhea, seizure, frequency, urgency, chest pain, shortness of breath. Patient reports that he is attempted to obtain help from [facility] however he reports that they told him that he does not qualify for services there because he was " not severe enough". Review of systems: As per history of present illness and below otherwise all systems reviewed and n egative. Past medical history: As per history of present illness and as reviewed below otherwise noncontributory. Surgical history: As per history of present illness and as reviewed below otherwise noncontributory. Social history: No reported history of drug abuse. Family history: As per history of present illness and as reviewed below otherwise noncontributory. Physical exam: This patient was seen and evaluated during the 2019 SARS-CoV-2 novel coronavirus pandemic period. Community viral transmission is ongoing at time of this encounter and the emergency department is operating under pandemic response procedures. Constitutional: Patient is oriented to person, place, and time. Appears well- developed and well-nourished. No distress. HEENT: Moist mucous membranes Head: Normocephalic and atraumatic Eyes: Right eye exhibits no discharge. Left eye exhibits no discharge. No scleral icterus Neck: Normal range of motion. No tracheal deviation present. Cardiovascular: Normal rate and regular rhythm. Pulmonary: Effort normal, no respiratory distress. Abdominal: No distention Musculoskeletal: Normal range of motion Neurologic: Alert and oriented to person, place and time. Skin: [place], warm and dry. Psychiatric: Normal mood and affect. Behavior is normal. Judgment and thought content normal. Nursing note and vital signs have been reviewed Diagnostics: CBC, CMP, salicylate, alcohol, UDS all negative. Covid negative. EKG: January 31, 2021 at 12:58 AM As interpreted by ER physician: Kisha: Nonspecific ST-T wave abnormalities Normal axis No evidence of ST elevation MT Normal sinus rhythm heart rate of 58 Therapeutics: [] Assessment and plan: This is a 30-year-old gentleman who has significant stressors in his life including suicide of his brother and father. Patient has severe depression at this time and anxiety and a sense of overwhelming doom secondary to the suicide of his brother back in June. Patient is concerned and worried that he has a predisposition to suicide given his family history and is worried about what might happen to his children if he would get to that point. Patient reports he has not had any suicidal thoughts however he did report that he had all the weapons and guns removed from his home as a precaution. Patient is here voluntarily requesting admission for assistance with depression and help to avoid going into the same path as brother and father. I feel that the patient would benefit from inpatient level of care for depression given his significant family history and stressors. 2:15 AM: Case discussed with [facility], no bed availability at this time. 2:30 AM: Case discussed with [facility] and they do have bed availability. I discussed the case with Dr. Rosario with agreed to accept patient for transfer. Patient is in agreement with this plan at this time. Definitive disposition and diagnosis as appropriate pending reevaluation and review of above. Shoulder Pain Score (Numeric/FACES): 5 - Related Data Allergies Allergy/AdvReac Type Severity Reaction Status Date / Time diphenhydramine Allergy Change Verified 01/30/21 22:17 [From Benadryl] Mental Status Past Medical History - Past Health History Medical/Surgical History: Denies Medical/Surgical History HEENT History: Reports: Hard of Hearing, Other (See Below) Other HEENT History: Ringing on both ears Cardiovascular History: Reports: None Gastrointestinal History: Reports: None Genitourinary History: Reports: None Musculoskeletal History: Reports: Fracture, Other (See Below) Other Musculoskeletal History: fracture of jaw Neurological History: Reports: None Psychiatric History: Reports: None Endocrine/Metabolic History: Reports: None Hematologic History: Reports: None Immunologic History: Reports: None Oncologic (Cancer) History: Reports: None Dermatologic History: Reports: None - Infectious Disease History Infectious Disease History: Reports: Chicken Pox - Past Surgical History Head Surgeries/Procedures: Reports: None Cardiovascular Surgical History: Reports: None Musculoskeletal Surgical History: Reports: Other (See Below) Other Musculoskeletal Surgeries/Procedures:: fracture and surgical repair of jaw including metal plate Social & Family History - Family History Family Medical History: No Pertinent Family History - Tobacco Use Tobacco Use Status *Q: Current Some Day Tobacco User Years of Tobacco use: 10 Packs/Tins Daily: 0.5 Second Hand Smoke Exposure: No - Caffeine Use Caffeine Use: Reports: Coffee - Alcohol Use Days Per Week of Alcohol Use: 6 Number of Drinks Per Day: 6 Total Drinks Per Week: 36 Date of Last Drink: 01/29/21 Time of Last Drink: 23:00 - Recreational Drug Use Recreational Drug Use: Yes Drug Use in Last 12 Months: Yes Recreational Drug Type: Reports: Marijuana/Hashish Recreational Drug Last Use: 01/29/21 ED ROS GENERAL - Review of Systems Review Of Systems: See Below ED EXAM, GENERAL - Physical Exam Exam: See Below Course - Vital Signs Last Recorded V/S: Last Vital Signs Temp 97.7 F 01/30/21 22:17 Pulse 56 L 01/31/21 02:30 Resp 18 01/31/21 02:30 BP 121/57 L 01/31/21 02:30 Pulse Ox 99 01/31/21 02:30 - Orders/Labs/Meds Labs: Laboratory Tests 01/31/21 01/31/21 01/31/21 Range/Units 00:50 00:54 00:54 WBC (4.0-11.0) K/uL RBC (4.50-5.90) M/uL Hgb (13.0-17.0) g/dL Hct (38.0-50.0) % MCV (80.0-98.0) fL MCH (27.0-32.0) pg MCHC (31.0-37.0) g/dL RDW Std Deviation (28.0-62.0) fl RDW Coeff of Aditya (11.0-15.0) % Plt Count (150-400) K/uL MPV (7.40-12.00) fL Neut % (Auto) (48.0-80.0) % Lymph % (Auto) (16.0-40.0) % [place] % (Auto) (0.0-15.0) % Eos % (Auto) (0.0-7.0) % Baso % (Auto) (0.0-1.5) % Neut # (Auto) (1.4-5.7) K/uL Lymph # (Auto) (0.6-2.4) K/uL [place] # (Auto) (0.0-0.8) K/uL Eos # (Auto) (0.0-0.7) K/uL Baso # (Auto) (0.0-0.1) K/uL Sodium (136-148) mmol/L Potassium (3.5-5.1) mmol/L Chloride (98-107) mmol/L Carbon Dioxide (21.0-32.0) mmol/L BUN (7.0-18.0) mg/dL Creatinine (0.8-1.3) mg/dL Est Cr Clr Drug Dosing mL/min Estimated GFR (MDRD) ml/min Glucose (74-106) mg/dL Calcium (8.5-10.1) mg/dL Magnesium (1.8-2.4) mg/dL Total Bilirubin (0.2-1.0) mg/dL AST (15-37) IU/L ALT (14-63) IU/L Alkaline Phosphatase (46-116) U/L Total Protein (6.4-8.2) g/dL Albumin (3.4-5.0) g/dL Globulin (2.6-4.0) g/dL Albumin/Globulin Ratio (0.9-1.6) Free T4 (0.76-1.46) ng/dL TSH, Ultra Sensitive (0.36-3.74) uIU/mL Urine Color YELLOW Urine Appearance CLEAR Urine pH 5.5 (5.0-8.0) Ur Specific [place] >= 1.030 (1.001-1.035) Urine Protein NEGATIVE (NEGATIVE) mg/dL Urine Glucose (UA) NEGATIVE (NEGATIVE) mg/dL Urine Ketones TRACE H (NEGATIVE) mg/dL Urine Occult Blood NEGATIVE (NEGATIVE) Urine Nitrite NEGATIVE (NEGATIVE) Urine Bilirubin NEGATIVE (NEGATIVE) Urine Urobilinogen 0.2 (<2.0) EU/dL Ur Leukocyte Esterase NEGATIVE (NEGATIVE) Urine RBC 0-1 (0-2/HPF) Urine WBC 0-1 (0-5/HPF) Ur Epithelial Cells RARE (NONE-FEW) Urine Bacteria RARE (NEGATIVE) Salicylates (0-20) mg/dL Urine Opiates Screen NEGATIVE (NEGATIVE) Ur Oxycodone Screen NEGATIVE (NEGATIVE) Urine Methadone Screen NEGATIVE (NEGATIVE) Acetaminophen ug/mL Ur Barbiturates Screen NEGATIVE (NEGATIVE) Ur Phencyclidine Scrn NEGATIVE (NEGATIVE) Ur Amphetamine Screen NEGATIVE (NEGATIVE) U Methamphetamines Scrn NEGATIVE (NEGATIVE) U Benzodiazepines Scrn NEGATIVE (NEGATIVE) U Cocaine Metab Screen NEGATIVE (NEGATIVE) U Marijuana (THC) Screen NEGATIVE (NEGATIVE) Ethyl Alcohol mg/dL SARS-CoV-2 RNA (LARRY) NEGATIVE (NEGATIVE) 01/31/21 01/31/21 Range/Units 00:59 00:59 WBC 6.97 (4.0-11.0) K/uL RBC 4.49 L (4.50-5.90) M/uL Hgb 13.4 (13.0-17.0) g/dL Hct 40.2 (38.0-50.0) % MCV 89.5 (80.0-98.0) fL MCH 29.8 (27.0-32.0) pg MCHC 33.3 (31.0-37.0) g/dL RDW Std Deviation 36.5 (28.0-62.0) fl RDW Coeff of Aditya 11 (11.0-15.0) % Plt Count 253 (150-400) K/uL MPV 9.50 (7.40-12.00) fL Neut % (Auto) 45.6 L (48.0-80.0) % Lymph % (Auto) 36.4 (16.0-40.0) % [place] % (Auto) 12.9 (0.0-15.0) % Eos % (Auto) 4.7 (0.0-7.0) % Baso % (Auto) 0.4 (0.0-1.5) % Neut # (Auto) 3.2 (1.4-5.7) K/uL Lymph # (Auto) 2.5 H (0.6-2.4) K/uL [place] # (Auto) 0.9 H (0.0-0.8) K/uL Eos # (Auto) 0.3 (0.0-0.7) K/uL Baso # (Auto) 0.0 (0.0-0.1) K/uL Sodium 141 (136-148) mmol/L Potassium 3.6 (3.5-5.1) mmol/L Chloride 101 (98-107) mmol/L Carbon Dioxide 28.9 (21.0-32.0) mmol/L BUN 21 H (7.0-18.0) mg/dL Creatinine 1.2 (0.8-1.3) mg/dL Est Cr Clr Drug Dosing 101.72 mL/min Estimated GFR (MDRD) > 60.0 ml/min Glucose 58 L (74-106) mg/dL Calcium 7.9 L (8.5-10.1) mg/dL Magnesium 2.1 (1.8-2.4) mg/dL Total Bilirubin 0.6 (0.2-1.0) mg/dL AST 23 (15-37) IU/L ALT 49 (14-63) IU/L Alkaline Phosphatase 68 (46-116) U/L Total Protein 7.4 (6.4-8.2) g/dL Albumin 4.3 (3.4-5.0) g/dL Globulin 3.1 (2.6-4.0) g/dL Albumin/Globulin Ratio 1.4 (0.9-1.6) Free T4 1.14 (0.76-1.46) ng/dL TSH, Ultra Sensitive 2.10 (0.36-3.74) uIU/mL Urine Color Urine Appearance Urine pH (5.0-8.0) Ur Specific [place] (1.001-1.035) Urine Protein (NEGATIVE) mg/dL Urine Glucose (UA) (NEGATIVE) mg/dL Urine Ketones (NEGATIVE) mg/dL Urine Occult Blood (NEGATIVE) Urine Nitrite (NEGATIVE) Urine Bilirubin (NEGATIVE) Urine Urobilinogen (<2.0) EU/dL Ur Leukocyte Esterase (NEGATIVE) Urine RBC (0-2/HPF) Urine WBC (0-5/HPF) Ur Epithelial Cells (NONE-FEW) Urine Bacteria (NEGATIVE) Salicylates 0.5 (0-20) mg/dL Urine Opiates Screen (NEGATIVE) Ur Oxycodone Screen (NEGATIVE) Urine Methadone Screen (NEGATIVE) Acetaminophen <2.0 ug/mL Ur Barbiturates Screen (NEGATIVE) Ur Phencyclidine Scrn (NEGATIVE) Ur Amphetamine Screen (NEGATIVE) U Methamphetamines Scrn (NEGATIVE) U Benzodiazepines Scrn (NEGATIVE) U Cocaine Metab Screen (NEGATIVE) U Marijuana (THC) Screen (NEGATIVE) Ethyl Alcohol <3 mg/dL SARS-CoV-2 RNA (LARRY) (NEGATIVE) Departure - Departure Time of Disposition: 02:47 Disposition: DC/Tfer to Psych Hosp/Unit [facility] Condition: Good Clinical Impression: Major depressive disorder - Discharge Information Referrals: PCP,None [Primary Care Provider] - Sepsis Event Note (ED) - Focused Exam Vital Signs: Vital Signs Temp Pulse Resp BP Pulse Ox 01/31/21 02:30 56 L 18 121/57 L 99 01/30/21 22:17 97.7 F 77 16 110/66 100
== END 2021-01-31 05:45 ==
LOC: MW.ED 18:55
DX: F32.9 Major depressive disorder, single episode, unspecified (principal); Z88.8 Allergy status to other drugs, medicaments and biological substances; Z72.0 Tobacco use; Z20.822 Contact with and (suspected) exposure to COVID-19
CPT/HCPCS: 36415; 80053; 80143; 80179; 80305-QW; 80307; 81001; 83735; 84439; 84443; 85025; 93005; 99285-25; U0002